=== PATIENT | female | born 1955 | race Caucasian/White ===

== ENCOUNTER 2017-02-14 11:00 | Emergency (ER) | payer OTHER, MEDICARE ==
[2017-02-14 11:10] VITALS: BP 165/97
[2017-02-14] MEDS ORDERED: Sodium Chloride 0.9% 10 ML Syringe FLUSH PRN (11:29)
--- NOTE | 2017-02-14 11:38 | EDM.PDOC ---
ED HPI GENERAL MEDICAL PROBLEM - General Chief Complaint: Respiratory Problem Stated Complaint: CHEST CONGESTION Time Seen by Provider: 02/14/17 11:20 Source of Information: Reports: Patient History Limitations: Reports: No Limitations - History of Present Illness INITIAL COMMENTS - FREE TEXT/NARRATIVE: Patient is a 61-year-old female presents to the ED complaining of nonproductive cough, shortness of breath with exertion, intermittent chest tightness, orthopnea and PND for the past week. Patient states she has had no sinus congestion, postnasal drip, or sore throat along with the above symptoms. States hacking cough has progressively gotten worse over the course of the week. States while in going to bed she has to sleep with 2 pillows otherwise she is short of breath and coughs. Again this is a nonproductive cough. States in the middle of the night she awakes abruptly gasping for air and coughing. Again there is no production of mucus at that time. States she has not noticed increase in weight recently but states she does fluctuate between 150 to 156 lbs. Denies any recent edema to her lower legs. She did have a prior episode as such this past September after having right shoulder surgery. Patient states 3 days after having the surgery she developed increasing shortness of breath with some chest tightness. She had some blood work obtained and was transferred to [place] for further evaluation. Dr. Logan park maintainer at [facility] evaluated the patient and the patient had a stress echocardiogram. Patient states heart was essentially normal with no valvular abnormalities noted. They contributed the cough and chest tightness to increased edema on her lungs. She did receive Lasix while in the hospital and has had resolution since.Currently denies any chest pain, shortness of breath, nausea/vomiting, diaphoresis, fever/chills, recent sick exposure, or any additional complaints. She has no history of DVT/PE, hemoptysis, exogenous estrogen, recent surgery, CA , or prolonged bed rest. Chest Pain Score (Numeric/FACES): 8 - Related Data Allergies Allergy/AdvReac Type Severity Reaction Status Date / Time gluten Allergy Severe Swelling Verified 02/14/17 11:57 zolpidem tartrate Allergy Severe Swelling Verified 02/14/17 11:57 [From Ambien] adhesive Allergy Mild Rash Verified 02/14/17 11:57 acetaminophen [From Endocet] Allergy Unknown Cannot Verified 02/14/17 11:57 Remember indomethacin Allergy Unknown Cannot Verified 02/14/17 11:57 Remember iodine Allergy Unknown Cannot Verified 02/14/17 11:57 Remember oxycodone HCl [From Endocet] Allergy Unknown Cannot Verified 02/14/17 11:57 Remember Penicillins Allergy Unknown Cannot Verified 02/14/17 11:57 Remember red dye Allergy Unknown Swelling Verified 02/14/17 11:57 azithromycin Allergy Diarrhea Verified 02/14/17 11:57 cefdinir Allergy Vomiting Verified 02/14/17 11:57 cetirizine HCl [From Zyrtec] Allergy Rash Verified 02/14/17 11:57 clarithromycin [From Biaxin] Allergy Rash Verified 02/14/17 11:57 clobetasol Allergy Cannot Verified 02/14/17 11:57 Remember clotrimazole Allergy Rash Verified 02/14/17 11:57 doxycycline Allergy Rash Verified 02/14/17 11:57 ezetimibe [From Zetia] Allergy Rash Verified 02/14/17 11:57 famotidine [From Pepcid] Allergy Stomach Verified 02/14/17 11:57 Upset latex Allergy Rash Verified 02/14/17 11:57 levofloxacin Allergy Rash Verified 02/14/17 11:57 licorice Allergy Rash Verified 02/14/17 11:57 loratadine [From Claritin] Allergy Rash Verified 02/14/17 11:57 omeprazole Allergy Rash Verified 02/14/17 11:57 pravastatin Allergy Cannot Verified 02/14/17 11:57 Remember prednisone Allergy Hives Verified 02/14/17 11:57 rosuvastatin [From Crestor] Allergy Rash Verified 02/14/17 11:57 yeast, dried [yeast] Allergy Rash Verified 02/14/17 11:57 yeast Allergy Severe Swelling Uncoded 02/14/17 11:57 adh Allergy Rash Uncoded 02/14/17 11:57 benzidine Allergy Cannot Uncoded 02/14/17 11:57 Remember bromochlorosalicylanilide Allergy Cannot Uncoded 02/14/17 11:57 Remember IV dye Allergy Rash Uncoded 02/14/17 11:57 MSG Allergy Hives Uncoded 02/14/17 11:57 Home Meds: Home Meds Levothyroxine [Synthroid] 100 mcg PO MOTUWETHFRSA 04/05/16 [History] Levothyroxine [Synthroid] 150 mcg PO CHAMPION 04/05/16 [History] Ondansetron [Zofran ODT] 4 mg PO Q4H PRN 10/27/16 [History] traMADol HCl [Tramadol HCl ER] 100 mg PO DAILY PRN 10/27/16 [History] Benzonatate [Tessalon Perles] 100 mg PO TID PRN #21 cap 02/14/17 [Rx] Past Medical History - Past Health History Medical/Surgical History: Denies Medical/Surgical History Cardiovascular History: Reports: Other (See Below) Other Cardiovascular History: tia in the past Respiratory History: Reports: Pneumonia, Recurrent Other Respiratory History: Pt states "I got the pneumonia shot, so now they are hoping that will take care of it." 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 Neurological History: Reports: TIA Endocrine/Metabolic History: Reports: Hypothyroidism Hematologic History: Reports: Anemia Other Hematologic History: Patient states "was anemic as a child." - Infectious Disease History Infectious Disease History: Reports: Chicken Pox - Past Surgical History GI Surgical History: Reports: Other (See Below) Female Surgical History: Reports: Section, Hysterectomy Endocrine Surgical History: Reports: Thyroidectomy Musculoskeletal Surgical History: Reports: Shoulder Surgery, Other (See Below) Social & Family History - Family History Family Medical History: Noncontributory - Tobacco Use Smoking Status *Q: Never Smoker Second Hand Smoke Exposure: No - Caffeine Use Caffeine Use: Reports: Coffee - Alcohol Use Days Per Week of Alcohol Use: 0 - Recreational Drug Use Recreational Drug Use: No ED ROS GENERAL - Review of Systems Review Of Systems: See Below Constitutional: Denies: Fever, Chills, Decreased Appetite HEENT: Reports: No Symptoms Respiratory: Reports: Shortness of Breath, Cough. Denies: Sputum Cardiovascular: Reports: Chest Pain (tightness) GI/Abdominal: Denies: Abdominal Pain, Nausea, Vomiting : Denies: Dysuria Musculoskeletal: Denies: Muscle Pain ED EXAM, GENERAL - Physical Exam Exam: See Below Exam Limited By: No Limitations General Appearance: Alert, WD/WN, No Apparent Distress Eye Exam: Bilateral Eye: PERRL Ears: Normal External Exam, Hearing Grossly Normal Nose: Normal Inspection, Normal Mucosa, No Blood Throat/Mouth: Normal Inspection, Normal Oropharynx, Normal Voice, No Airway Compromise Head: Atraumatic, Normocephalic Neck: Normal Inspection, Supple, Non-Tender, Full Range of Motion. No: Lymphadenopathy (L), Lymphadenopathy (R) Respiratory/Chest: No Respiratory Distress, Lungs Clear, Normal Breath Sounds, No Accessory Muscle Use Cardiovascular: Normal Peripheral Pulses, Regular Rate, Rhythm Peripheral Pulses: 2+: Radial (R) GI/Abdominal: Normal Bowel Sounds, Soft, Non-Tender, No Organomegaly, No Distention Extremities: Non-Tender, No Pedal Edema Neurological: Alert, Oriented, CN II-XII Intact, Normal Cognition, Normal Gait, No Motor/Sensory Deficits Psychiatric: Normal Affect, Normal Mood Skin Exam: Warm, Dry, Intact, Normal Color, No Rash Course - Vital Signs Last Recorded V/S: Last Vital Signs Temp 97.9 F 02/14/17 11:08 Pulse 93 02/14/17 11:08 Resp 20 02/14/17 11:08 BP 165/97 H 02/14/17 11:08 Pulse Ox 97 02/14/17 12:13 - Orders/Labs/Meds Orders: Active Orders 24 hr Category Date Time Status EKG 12 Lead [EKG Documentation Completion] [RC] STAT Care 02/14/17 11:15 Active Peripheral IV Care [RC] . DIRECTED Care 02/14/17 11:30 Active RT Aerosol Therapy [RC] ASDIRECTED Care 02/14/17 11:54 Active Peripheral IV Insertion Adult [OM.PC] Routine Oth 02/14/17 11:29 Ordered Labs: Laboratory Tests 02/14/17 02/14/17 02/14/17 Range/Units 11:45 11:45 11:45 WBC 6.63 (3.98-10.04) K/mm3 RBC 4.82 (3.98-5.22) M/mm3 Hgb 13.6 (11.2-15.7) gm/L Hct 41.4 (34.1-44.9) % MCV 85.9 (79.4-94.8) fl MCH 28.2 (25.6-32.2) pg MCHC 32.9 (32.2-35.5) g/dl RDW Std Deviation 47.2 H (36.4-46.3) fL Plt Count 233 (182-369) K/mm3 MPV 11.3 (9.4-12.3) fl Neut % (Auto) 59.9 (34.0-71.1) % Lymph % (Auto) 32.0 (19.3-51.7) % [place] % (Auto) 6.2 (4.7-12.5) % Eos % (Auto) 1.1 (0.7-5.8) Baso % (Auto) 0.6 (0.1-1.2) % Neut # (Auto) 3.98 (1.56-6.13) K/mm3 Lymph # (Auto) 2.12 (1.18-3.74) K/mm3 [place] # (Auto) 0.41 H (0.24-0.36) K/mm3 Eos # (Auto) 0.07 (0.04-0.36) K/mm3 Baso # (Auto) 0.04 (0.01-0.08) K/mm3 Sodium 143 (136-145) mEq/L Potassium 3.9 (3.5-5.1) mEq/L Chloride 105 (98-107) mEq/L Carbon Dioxide 29 (21-32) mEq/L Anion Gap 12.9 (5-15) BUN 15 (7-18) mg/dL Creatinine 0.8 (0.55-1.02) mg/dL Est Cr Clr Drug Dosing 52.37 mL/min Estimated GFR (MDRD) > 60 (>60) mL/min BUN/Creatinine Ratio 18.8 H (14-18) Glucose 114 (80-115) mg/dL Calcium 9.3 (8.5-10.1) mg/dL Total Bilirubin 0.3 (0.2-1.0) mg/dL AST 23 (15-37) U/L ALT 31 (14-59) U/L Alkaline Phosphatase 65 (46-116) U/L Troponin I < 0.017 (0.00-0.056) ng/mL C-Reactive Protein < 0.2 (<1.0) mg/dL B-Natriuretic Peptide < 15 (0-100) pg/mL Total Protein 8.1 (6.4-8.2) g/dl Albumin 3.9 (3.4-5.0) g/dl Globulin 4.2 gm/dL Albumin/Globulin Ratio 0.9 L (1-2) Meds: Medications Discontinued Medications Generic Name Dose Route Start Last Admin Trade Name Fredavid PRN Reason Stop Dose Admin Albuterol 2.5 mg 02/14/17 11:54 02/14/17 12:12 Proventil Neb Soln NEB 02/14/17 11:55 2.5 mg ONETIME ONE Administration Sodium Chloride 10 ml 02/14/17 11:29 02/14/17 11:53 Saline Flush FLUSH 10 ml ASDIRECTED PRN Administration Keep Vein Open - Re-Assessments/Exams Free Text/Narrative Re-Assessment/Exam: Due to patient's history and symptomology we'll obtain a peripheral IV. Initial labs and studies include: CBC, chem 14, CRP, troponin, chest x-ray two-view, and 12 lead. EKG: sinus rhythm at a rate of 89, normal P axis, MO interval 161, QTC 430, old inferior infarct. No acute ST changes noted. 1145 CXR revealed no cardiomegaly or acute abnormalities. No increased vascular congestion noted. 02/14/17 12:58 Labs reviewed: Essentially all were normal. Patient had minimal relief with albuterol tx. Ruled out cardiac etiology. Symptoms are most likely related to a viral URI. This will run its course over the next few days. Treatment is symptomatic care only. Will discharge patient home instructions. Departure - Departure Time of Disposition: 13:00 Disposition: Home, Self-Care 01 Condition: good Clinical Impression: Viral URI with cough - Discharge Information Prescriptions: Benzonatate [Tessalon Perles] 100 mg PO TID PRN #21 cap PRN Reason: Cough Instructions: Acute Bronchitis, [id number] Referrals: Kai Wilson MD [Primary Care Provider] - Forms: ED Department Discharge Additional Instructions: take the Tessalon Perles as described for cough. Push the fluids. Ensure adequate rest. Take tylenol and ibuprofen in alternating fashion as needed for any discomfort. Can take Mucinex 600 mg twice a day until cough subsides. See her PCP in one week if symptoms have not improved. Return to ED if you experience any new or worsening symptoms. - My Orders Last 24 Hours: My Active Orders 02/14/17 11:15 EKG 12 Lead [EKG Documentation Completion] [RC] STAT 02/14/17 11:29 Peripheral IV Insertion Adult [OM.PC] Routine 02/14/17 11:30 Peripheral IV Care [RC] . DIRECTED 02/14/17 11:54 RT Aerosol Therapy [RC] ASDIRECTED - Assessment/Plan Last 24 Hours: My Active Orders 02/14/17 11:15 EKG 12 Lead [EKG Documentation Completion] [RC] STAT 02/14/17 11:29 Peripheral IV Insertion Adult [OM.PC] Routine 02/14/17 11:30 Peripheral IV Care [RC] . DIRECTED 02/14/17 11:54 RT Aerosol Therapy [RC] ASDIRECTED
[2017-02-14] MEDS ORDERED: Albuterol 0.083% 2.5 MG/3 ML Neb Soln NEB ONE (11:54)
--- NOTE | 2017-02-14 12:23 | CR ---
Chest: Two views of the chest are obtained. Comparison: Previous chest x-ray of 10/27/16. Heart size and mediastinum are normal. Lungs are clear. Previous right shoulder surgery is seen. Scoliosis is noted within the spine. Impression: 1. Incidental findings. Nothing acute is identified on two-view chest x-ray. Diagnostic code #2
== END 2017-02-14 13:25 | disposition home or self-care (01) ==
LOC: JD.ED 11:00
DX: J06.9 Acute upper respiratory infection, unspecified (principal); E03.9 Hypothyroidism, unspecified; Z88.0 Allergy status to penicillin; Z88.8 Allergy status to other drugs, medicaments and biological substances; Z88.1 Allergy status to other antibiotic agents; Z88.5 Allergy status to narcotic agent; Z91.041 Radiographic dye allergy status; Z79.899 Other long term (current) drug therapy; Z90.710 Acquired absence of both cervix and uterus; Z98.890 Other specified postprocedural states; Z86.73 Personal history of transient ischemic attack (TIA), and cerebral infarction without residual deficits
CPT/HCPCS: 36415; 71020; 80053; 83880; 84484; 85025; 86140; 93005; 94664; 99284; J7050; 99283

== ENCOUNTER 2017-07-18 17:09 | Emergency (ER) | payer OTHER, MEDICARE ==
[2017-07-18 17:33] VITALS: BP 160/97
[2017-07-18] MEDS ORDERED: Lidocaine 1% 50 ML MDV INJECT ONE (17:58)
--- NOTE | 2017-07-18 18:03 | EDM.PDOC ---
ED HPI GENERAL MEDICAL PROBLEM - General Chief Complaint: Skin Complaint Stated Complaint: MOLES STILL BLEEDING Time Seen by Provider: 07/18/17 17:51 Source of Information: Reports: Patient History Limitations: Reports: No Limitations - History of Present Illness INITIAL COMMENTS - FREE TEXT/NARRATIVE: 61-year-old female presents for evaluation treatment of persistent bleeding from recent biopsies. Patient was in [place] and had 3 moles biopsied around 8: 30 am today. Sounds as if shave biopsy was performed. She's states that she has been soaking through the gauze underclothes. Located on her back and flanks. The bleeding has not subsided since being biopsied. Takes aspirin twice a week. Has not taken aspirin in the last 4 days. 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) - Related Data Allergies Allergy/AdvReac Type Severity Reaction Status Date / Time gluten Allergy Severe Swelling Verified 07/18/17 17:33 zolpidem tartrate Allergy Severe Swelling Verified 07/18/17 17:33 [From Ambien] adhesive Allergy Mild Rash Verified 07/18/17 17:33 acetaminophen [From Endocet] Allergy Unknown Cannot Verified 07/18/17 17:33 Remember indomethacin Allergy Unknown Cannot Verified 07/18/17 17:33 Remember iodine Allergy Unknown Cannot Verified 07/18/17 17:33 Remember oxycodone HCl [From Endocet] Allergy Unknown Cannot Verified 07/18/17 17:33 Remember Penicillins Allergy Unknown Cannot Verified 07/18/17 17:33 Remember red dye Allergy Unknown Swelling Verified 07/18/17 17:33 azithromycin Allergy Diarrhea Verified 07/18/17 17:33 cefdinir Allergy Vomiting Verified 07/18/17 17:33 cetirizine HCl [From Zyrtec] Allergy Rash Verified 07/18/17 17:33 clarithromycin [From Biaxin] Allergy Rash Verified 07/18/17 17:33 clobetasol Allergy Cannot Verified 07/18/17 17:33 Remember clotrimazole Allergy Rash Verified 07/18/17 17:33 doxycycline Allergy Rash Verified 07/18/17 17:33 ezetimibe [From Zetia] Allergy Rash Verified 07/18/17 17:33 famotidine [From Pepcid] Allergy Stomach Verified 07/18/17 17:33 Upset latex Allergy Rash Verified 07/18/17 17:33 levofloxacin Allergy Rash Verified 07/18/17 17:33 licorice Allergy Rash Verified 07/18/17 17:33 loratadine [From Claritin] Allergy Rash Verified 07/18/17 17:33 omeprazole Allergy Rash Verified 07/18/17 17:33 pravastatin Allergy Cannot Verified 07/18/17 17:33 Remember prednisone Allergy Hives Verified 07/18/17 17:33 rosuvastatin [From Crestor] Allergy Rash Verified 07/18/17 17:33 yeast, dried [yeast] Allergy Rash Verified 07/18/17 17:33 yeast Allergy Severe Swelling Uncoded 07/18/17 17:33 adh Allergy Rash Uncoded 07/18/17 17:33 benzidine Allergy Cannot Uncoded 07/18/17 17:33 Remember bromochlorosalicylanilide Allergy Cannot Uncoded 07/18/17 17:33 Remember IV dye Allergy Rash Uncoded 07/18/17 17:33 MSG Allergy Hives Uncoded 07/18/17 17:33 Home Meds: Home Meds Levothyroxine [Synthroid] 50 mcg PO BID 04/05/16 [History] Benzonatate [Tessalon Perles] 100 mg PO TID PRN #21 cap 02/14/17 [Rx] Aspirin 325 mg PO ASDIRECTED 07/18/17 [History] Cholecalciferol (Vitamin D3) [Vitamin D] 5,000 unit PO DAILY 07/18/17 [History] Levothyroxine 150 mcg PO ASDIRECTED 07/18/17 [History] Multivitamin [One Daily] 1 each PO DAILY 07/18/17 [History] Ubidecarenone [COQ-10] 30 mg PO DAILY 07/18/17 [History] Past Medical History - Past Health History Medical/Surgical History: Denies Medical/Surgical History HEENT History: Reports: Impaired Vision Cardiovascular History: Reports: High Cholesterol, Hypertension, Other (See Below) Other Cardiovascular History: tia in the past Respiratory History: Reports: Pneumonia, Recurrent Other Respiratory History: Pt states "I got the pneumonia shot, so now they are hoping that will take care of it." 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 Neurological History: Reports: TIA Psychiatric History: Reports: Anxiety Endocrine/Metabolic History: Reports: Hypothyroidism Hematologic History: Reports: Anemia Other Hematologic History: Patient states "was anemic as a child." - Infectious Disease History Infectious Disease History: Reports: Chicken Pox - Past Surgical History Female Surgical History: Reports: Section, Hysterectomy Endocrine Surgical History: Reports: Thyroidectomy Musculoskeletal Surgical History: Reports: Shoulder Surgery Dermatological Surgical History: Reports: Skin Biopsy Social & Family History - Family History Family Medical History: Noncontributory - Tobacco Use Smoking Status *Q: Never Smoker Second Hand Smoke Exposure: No - Caffeine Use Caffeine Use: Reports: Coffee - Alcohol Use Days Per Week of Alcohol Use: 0 - Recreational Drug Use Recreational Drug Use: No ED ROS GENERAL - Review of Systems Review Of Systems: ROS reveals no pertinent complaints other than HPI. ED EXAM, SKIN/RASH Exam: See Below Exam Limited By: No Limitations General Appearance: Alert, WD/WN, No Apparent Distress Respiratory/Chest: No Respiratory Distress Neurological: Alert, Oriented, Normal Cognition Psychiatric: Normal Affect, Normal Mood Skin: Warm, Dry, Normal Color, Other (3 recetly biopsied areas one to the right mid back, one to the right flank and one to the left flank each about 1cm in diameter. apparent shave biopsy. Superficial ) Course - Vital Signs Last Recorded V/S: Last Vital Signs Temp 36.4 C 07/18/17 17:20 Pulse 81 07/18/17 17:20 Resp 18 07/18/17 17:20 BP 160/97 H 07/18/17 17:20 Pulse Ox 98 07/18/17 17:20 - Orders/Labs/Meds Meds: Medications Discontinued Medications Generic Name Dose Route Start Last Admin Trade Name Patricia PRN Reason Stop Dose Admin Lidocaine HCl 50 ml 07/18/17 17:58 07/18/17 18:05 Xylocaine 1% INJECT 07/18/17 17:59 50 ml ONETIME ONE Administration - Re-Assessments/Exams Free Text/Narrative Re-Assessment/Exam: 07/18/17 18: 35 The three areas were anesthetized with 1% lidocaine about 1ml total after they were cleansed with chloraprep. The areas were then cauterized with silver nitrate. Patient tolerate the procedure well. No complications. Will recheck on the patient shortly to ensure bleeding has not restarted. 07/18/17 18:44 I have rechecked on the patient. No bleeding from the 3 areas that were cauterized. We will discharge her home. Discharge instructions as documented. 07/18/17 18:47 Departure - Departure Time of Disposition: 18:44 Disposition: Home, Self-Care 01 Condition: Good Clinical Impression: Bleeding from wound - Discharge Information Referrals: PCP,None [Primary Care Provider] - Forms: ED Department Discharge Additional Instructions: Keep the wounds covered. After 24 hours may apply antibacterial ointment to the wounds and wash the wounds. Monitor for signs of infection such as increased erythema, pus or swelling. Present to the clinic or the ER should these develop. Please return to the ER should your symptoms change or worsen. If the wounds start to re bleed, hold pressure to the areas.
== END 2017-07-18 19:00 | disposition home or self-care (01) ==
LOC: JD.ED 17:09
DX: L76.22 Postprocedural hemorrhage of skin and subcutaneous tissue following other procedure (principal); Z88.0 Allergy status to penicillin; Z88.5 Allergy status to narcotic agent; Z88.8 Allergy status to other drugs, medicaments and biological substances; Z91.040 Latex allergy status; Z88.1 Allergy status to other antibiotic agents; Z79.899 Other long term (current) drug therapy
CPT/HCPCS: 12002; 99282-25; 99283

== ENCOUNTER 2017-10-01 01:08 | Emergency (ER) | payer BC, MEDICARE ==
[2017-10-01 01:29] VITALS: BP 161/73
[2017-10-01] MEDS ORDERED: Ondansetron 4 MG/2 ML SDV IVPUSH ONE (02:22)
[2017-10-01] MEDS ORDERED: HYDROmorphone 0.5 MG/0.5 ML Syringe IVPUSH ONE (02:24)
--- NOTE | 2017-10-01 02:27 | EDM.PDOC ---
ED HPI GENERAL MEDICAL PROBLEM - General Chief Complaint: Abdominal Pain Stated Complaint: SHARP PAINS UNDER RIBS RIGHT SIDE Time Seen by Provider: 10/01/17 01:19 Source of Information: Reports: Patient, Family () History Limitations: Reports: No Limitations - History of Present Illness INITIAL COMMENTS - FREE TEXT/NARRATIVE: The patient states that she developed sharp right upper quadrant abdominal pain yesterday, 09/30/2017. It has been waxing and waning. Is made worse with deep breaths or eating fatty foods. It does not radiate. No prior similar symptoms. No recent fever. The patient has had nausea, but no emesis, constipation, diarrhea, or urinary symptoms. The patient states that she was on pitavastatin for about 3 weeks in early August. She then developed low back pain, dull in character, along with bilateral ankle aches, about 10 days ago. Her low back pain is still present, although it has improved, while her bilateral ankle aches lasted for about 5 or 6 days. The patient was seen at the [place] walk in clinic this past Friday, 2016 for her low back ache. A CMP, CPK, and urinalysis were performed. They were all unremarkable. The patient does not know what diagnosis she was given, but no prescriptions were written, and the walk-in clinic recommended that the patient follow-up with her PCP. The patient's last oral solid food was around 18:30 last night. Her last oral fluid intake was around 01:00 this morning. The patient does not have a PCP. Right Upper Abdomen Pain Score (Numeric/FACES): 6 - Related Data Allergies Allergy/AdvReac Type Severity Reaction Status Date / Time gluten Allergy Severe Swelling Verified 10/01/17 02:43 zolpidem tartrate Allergy Severe Swelling Verified 10/01/17 02:43 [From Ambien] adhesive Allergy Mild Rash Verified 10/01/17 02:43 acetaminophen [From Endocet] Allergy Unknown Cannot Verified 10/01/17 02:43 Remember indomethacin Allergy Unknown Cannot Verified 10/01/17 02:43 Remember iodine Allergy Unknown Cannot Verified 10/01/17 02:43 Remember oxycodone HCl [From Endocet] Allergy Unknown Cannot Verified 10/01/17 02:43 Remember red dye Allergy Unknown Swelling Verified 10/01/17 02:43 cefdinir Allergy Vomiting Verified 10/01/17 02:43 cetirizine HCl [From Zyrtec] Allergy Rash Verified 10/01/17 02:43 clarithromycin [From Biaxin] Allergy Rash Verified 10/01/17 02:44 clobetasol Allergy Cannot Verified 10/01/17 02:44 Remember clotrimazole Allergy Rash Verified 10/01/17 02:44 doxycycline Allergy Rash Verified 10/01/17 02:44 ezetimibe [From Zetia] Allergy Rash Verified 10/01/17 02:44 famotidine [From Pepcid] Allergy Stomach Verified 10/01/17 02:44 Upset latex Allergy Rash Verified 10/01/17 02:44 levofloxacin Allergy Rash Verified 10/01/17 02:44 licorice Allergy Rash Verified 10/01/17 02:44 loratadine [From Claritin] Allergy Rash Verified 10/01/17 02:44 omeprazole Allergy Rash Verified 10/01/17 02:44 pravastatin Allergy Cannot Verified 10/01/17 02:44 Remember prednisone Allergy Hives Verified 10/01/17 02:44 rosuvastatin [From Crestor] Allergy Rash Verified 10/01/17 02:44 yeast, dried [yeast] Allergy Rash Verified 10/01/17 02:44 adh Allergy Rash Uncoded 10/01/17 02:44 benzidine Allergy Cannot Uncoded 10/01/17 02:44 Remember bromochlorosalicylanilide Allergy Cannot Uncoded 10/01/17 02:44 Remember IV dye Allergy Rash Uncoded 10/01/17 02:44 MSG Allergy Hives Uncoded 10/01/17 02:44 Home Meds: Home Meds Levothyroxine [Synthroid] 150 mcg PO CHAMPION 04/05/16 [History] Cholecalciferol (Vitamin D3) [Vitamin D] 5,000 unit PO DAILY 07/18/17 [History] Levothyroxine 100 mcg PO MOTUWETHFRSA 07/18/17 [History] Multivitamin [One Daily] 1 each PO DAILY 07/18/17 [History] Ubidecarenone [COQ-10] 30 mg PO DAILY 07/18/17 [History] Ascorbic Acid [Vitamin C] 1,000 mg PO DAILY 10/01/17 [History] Ca/D3/Mag#11/Zinc/Credit Risk Specialist/Demond/Bor [Caltrate 600+D Plus Tablet] 2 tab PO DAILY 10/01 [History] Past Medical History HEENT History: Reports: Impaired Vision Other HEENT History: Wears glasses Cardiovascular History: Reports: High Cholesterol Gastrointestinal History: Reports: Colon Polyp 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 Neurological History: Reports: TIA (possible) Psychiatric History: Reports: Anxiety Endocrine/Metabolic History: Reports: Hypothyroidism Hematologic History: Reports: Anemia (as a child) - Infectious Disease History Infectious Disease History: Reports: Chicken Pox - Past Surgical History GI Surgical History: Reports: Colonoscopy, EGD, Hernia Repair/Other Female Surgical History: Reports: Section (x 1), Hysterectomy, Salpingo-Oophorectomy Endocrine Surgical History: Reports: Thyroidectomy Musculoskeletal Surgical History: Reports: Shoulder Surgery Dermatological Surgical History: Reports: Skin Biopsy Social & Family History - Family History Family Medical History: Noncontributory - Tobacco Use Smoking Status *Q: Never Smoker Second Hand Smoke Exposure: No - Caffeine Use Caffeine Use: Reports: Coffee - Alcohol Use Days Per Week of Alcohol Use: 0 - Recreational Drug Use Recreational Drug Use: No - Living Situation & Occupation Living situation: Reports: , with Spouse ED ROS GENERAL - Review of Systems Review Of Systems: ROS reveals no pertinent complaints other than HPI. ED EXAM, GI/ABD - Physical Exam Exam: See Below Exam Limited By: No Limitations General Appearance: Alert, WD/WN, No Apparent Distress Eyes: Bilateral: Normal Appearance, EOMI Ears: Normal External Exam, Hearing Grossly Normal Nose: Normal Inspection, No Blood Throat/Mouth: Normal Inspection, Normal Lips, Normal Voice, No Airway Compromise Head: Atraumatic, Normocephalic Neck: Normal Inspection, Full Range of Motion Respiratory/Chest: No Respiratory Distress, Lungs Clear, Normal Breath Sounds, No Accessory Muscle Use Cardiovascular: Normal Peripheral Pulses, Regular Rate, Rhythm, No Gallop, No JVD, No Murmur, No Rub GI/Abdominal Exam: Normal Bowel Sounds, Soft, No Organomegaly, No Distention, No Abnormal Bruit, No Mass, Tender (Primarily in the epigastric region, but also in the right upper quadrant. Palpation to the remainder of the abdomen induces pain in the right upper quadrant) (Female) Exam: Deferred Rectal (Female) Exam: Deferred Back Exam: Normal Inspection, Full Range of Motion. No: CVA Tenderness (L), CVA Tenderness (R) Extremities: Normal Inspection, Normal Range of Motion, No Pedal Edema, Normal Capillary Refill Neurological: Alert, Oriented, Normal Cognition, No Motor/Sensory Deficits Psychiatric: Normal Affect Skin Exam: Warm, Dry, Intact, Normal Color, No Rash Course - Vital Signs Last Recorded V/S: Last Vital Signs Temp 36.7 C 10/01/17 01:26 Pulse 71 10/01/17 01:26 Resp 16 10/01/17 01:26 BP 161/73 H 10/01/17 01:26 Pulse Ox 97 10/01/17 01:26 - Orders/Labs/Meds Orders: Active Orders 24 hr Category Date Time Status Abdomen Pelvis wo Cont [CT] Stat Exams 10/01/17 02:23 Taken Sodium Chloride 0.9% [Normal Saline] 1,000 ml Med 10/01/17 02:30 Active IV ASDIRECTED Medication Orders Sodium Chloride (Normal Saline) 1,000 mls @ 150 mls/hr IV ASDIRECTED NATHAN Last Admin: 10/01/17 02:36 Dose: 150 mls/hr Labs: Laboratory Tests 10/01/17 10/01/17 10/01/17 Range/Units 02:29 02:29 02:58 WBC 7.19 (3.98-10.04) K/mm3 RBC 4.58 (3.98-5.22) M/mm3 Hgb 12.9 (11.2-15.7) gm/L Hct 39.4 (34.1-44.9) % MCV 86.0 (79.4-94.8) fl MCH 28.2 (25.6-32.2) pg MCHC 32.7 (32.2-35.5) g/dl RDW Std Deviation 46.5 H (36.4-46.3) fL Plt Count 220 (182-369) K/mm3 MPV 11.4 (9.4-12.3) fl Neutrophils % (Manual) 53 (40-60) % Band Neutrophils % 0 (0-10) % Lymphocytes % (Manual) 41 H (20-40) % Atypical Lymphs % 0 % Monocytes % (Manual) 2 (2-10) % Eosinophils % (Manual) 3 (0.7-5.8) % Basophils % (Manual) 1 (0.1-1.2) Platelet Estimate Adequate RBC Morph Comment Normal Sodium 142 (136-145) mEq/L Potassium 3.9 (3.5-5.1) mEq/L Chloride 105 (98-107) mEq/L Carbon Dioxide 28 (21-32) mEq/L Anion Gap 12.9 (5-15) BUN 15 (7-18) mg/dL Creatinine 0.7 (0.55-1.02) mg/dL Est Cr Clr Drug Dosing 59.85 mL/min Estimated GFR (MDRD) > 60 (>60) mL/min BUN/Creatinine Ratio 21.4 H (14-18) Glucose 114 (80-115) mg/dL Calcium 9.2 (8.5-10.1) mg/dL Total Bilirubin 0.1 L (0.2-1.0) mg/dL AST 15 (15-37) U/L ALT 26 (14-59) U/L Alkaline Phosphatase 61 (46-116) U/L Total Protein 7.8 (6.4-8.2) g/dl Albumin 3.8 (3.4-5.0) g/dl Globulin 4.0 gm/dL Albumin/Globulin Ratio 1.0 (1-2) Lipase 180 (73-393) U/L Urine Color Yellow (Yellow) Urine Appearance Clear (Clear) Urine pH 6.0 (5.0-8.0) Ur Specific [place] 1.015 (1.005-1.030) Urine Protein Negative (Negative) Urine Glucose (UA) Negative (Negative) Urine Ketones Negative (Negative) Urine Occult Blood Negative (Negative) Urine Nitrite Negative (Negative) Urine Bilirubin Negative (Negative) Urine Urobilinogen 0.2 (0.2-1.0) Ur Leukocyte Esterase Trace H (Negative) Urine RBC 0-5 (0-5) /hpf Urine WBC 0-5 (0-5) /hpf Ur Epithelial Cells 0-5 (0-5) /hpf Urine Bacteria Few (FEW) /hpf Urine Mucus Few (FEW) /hpf Meds: Medications Generic Name Dose Route Start Last Admin Trade Name Freq PRN Reason Stop Dose Admin Sodium Chloride 1,000 mls @ 150 mls/hr 10/01/17 02:30 10/01/17 02:36 Normal Saline IV 150 mls/hr ASDIRECTED NATHAN Administration Discontinued Medications Generic Name Dose Route Start Last Admin Trade Name Freq PRN Reason Stop Dose Admin Hydromorphone HCl 0.5 mg 10/01/17 02:24 10/01/17 02:41 Dilaudid IVPUSH 10/01/17 02:25 0.5 mg ONETIME ONE Administration Ondansetron HCl 4 mg 10/01/17 02:22 10/01/17 02:38 Zofran IVPUSH 10/01/17 02:23 4 mg ONETIME ONE Administration - Re-Assessments/Exams Free Text/Narrative Re-Assessment/Exam: 10/01/17 05:08 CT of the abdomen and pelvis with oral, but no IV contrast, is read by [facility] as: 1. Gastritic distention of uncertain clinical significance. An element of gastroparesis cannot be excluded. 2. No nephrolithiasis. No obstructing renal or ureteral stone. No hydronephrosis. 3. Appendix is not definitely identified. No associated CT findings of acute appendicitis. 10/01/17 05:32 Test results discussed with the patient and her . Tonight's workup is unremarkable, and does not explain the cause of the patient's abdominal pain. I will discharge the patient home with a referral to Dr. Singh. I offered to prescribe a narcotic pain reliever and an antiemetic, however, the patient declined both. Departure - Departure Time of Disposition: 05:34 Disposition: Home, Self-Care 01 Condition: Good Clinical Impression: Abdominal pain of unknown etiology - Discharge Information Referrals: PCP,None [Primary Care Provider] - Darren Singh MD [Physician] - Altagracia Vicente MD [Physician] - Forms: ED Department Discharge Additional Instructions: You were seen in the emergency room for upper right abdominal pain and nausea. Workup in the ER included blood work, a urinalysis, and a CT scan of your abdomen and pelvis. Your entire workup was unremarkable, and does not explain the cause of your pain. Further workup is needed. You were offered prescriptions for pain medicine and anti-nausea medicine, but declined both. We recommend that you avoid fatty/greasy/oily foods. Follow-up with the surgeon Dr. Darren Singh, at the next available appointment. If any other problems, please do not hesitate to return to the ER. - My Orders Last 24 Hours: My Active Orders 10/01/17 02:23 Abdomen Pelvis wo Cont [CT] Stat 10/01/17 02:30 Sodium Chloride 0.9% [Normal Saline] 1,000 ml IV ASDIRECTED - Assessment/Plan Last 24 Hours: My Active Orders 10/01/17 02:23 Abdomen Pelvis wo Cont [CT] Stat 10/01/17 02:30 Sodium Chloride 0.9% [Normal Saline] 1,000 ml IV ASDIRECTED
[2017-10-01] MEDS ORDERED: Sodium Chloride 0.9% 1,000 ML IV SCH (02:30)
--- NOTE | 2017-10-01 09:14 | CT ---
CT abdomen and pelvis Technique: Multiple axial sections were obtained from above the liver inferiorly through the pubic symphysis. Intravenous contrast was not utilized. Oral contrast has been given. Comparison: Prior abdominal and pelvic CT exam dated 07/23/12. Findings: Visualized lung bases show nothing acute. Small hiatal hernia is noted. Liver shows no focal parenchymal abnormality. Spleen appears within normal limits. Adrenal glands show no nodule. Pancreas is within normal limits. Stomach contains contrast. Kidneys show no abnormal calcifications. No ureteral dilatation or ureteral stone is seen. Atherosclerotic calcification is noted within the aortoiliac vessels without aneurysm. No retroperitoneal adenopathy or mesenteric abnormalities are seen. No pelvic mass or adenopathy is seen. No inflammatory change or free fluid is identified. Appendix is not visualized with certainty. Bone window settings were reviewed which appear within normal limits for the patient's age. Impression: 1. Stomach is filled with contrast which is felt to be incidental. 2. Other incidental findings. Nothing acute is identified on CT study of the abdomen and pelvis. Diagnostic code #2 I agree with preliminary report issued by [facility] ([facility] report finalized on 10/01/17, 6:05 AM Central Time)
== END 2017-10-01 05:55 | disposition home or self-care (01) ==
LOC: JD.ED 01:08
DX: R10.11 Right upper quadrant pain (principal); E78.00 Pure hypercholesterolemia, unspecified; Z79.899 Other long term (current) drug therapy; Z88.8 Allergy status to other drugs, medicaments and biological substances; Z91.041 Radiographic dye allergy status; Z88.1 Allergy status to other antibiotic agents; Z91.09 Other allergy status, other than to drugs and biological substances
CPT/HCPCS: 36415; 74176; 80053; 81001; 83690; 85025; 96361; 96374; 96375; 99284; J1170; J2405; J7040; P9612; 99283

== ENCOUNTER 2017-10-26 19:12 | Emergency (ER) | payer BC, MEDICARE ==
[2017-10-26 19:22] VITALS: BP 167/77
[2017-10-26] MEDS ORDERED: Sodium Chloride 0.9% 10 ML Syringe FLUSH PRN (19:44)
--- NOTE | 2017-10-26 20:32 | EDM.PDOC ---
ED HPI GENERAL MEDICAL PROBLEM - General Chief Complaint: Respiratory Problem Stated Complaint: DIFFICULTY BREATHING Time Seen by Provider: 10/26/17 19:23 Source of Information: Reports: Patient, RN Notes Reviewed - History of Present Illness INITIAL COMMENTS - FREE TEXT/NARRATIVE: 61 year old female with increasing dyspnea the past 3 to 4 days, chest "feels heavy". Very occasional cough. No congestion, sore throat, fever or chills. No abd pain, nausea or vomting. Hx of "CHF, pulmonary edema" about 1 yr ago. States her weight has been "creeping up" and now about 5 lbs above base line. - Related Data Allergies Allergy/AdvReac Type Severity Reaction Status Date / Time gluten Allergy Severe Swelling Verified 10/01/17 02:43 zolpidem tartrate Allergy Severe Swelling Verified 10/01/17 02:43 [From Ambien] adhesive Allergy Mild Rash Verified 10/01/17 02:43 acetaminophen [From Endocet] Allergy Unknown Cannot Verified 10/01/17 02:43 Remember indomethacin Allergy Unknown Cannot Verified 10/01/17 02:43 Remember iodine Allergy Unknown Cannot Verified 10/01/17 02:43 Remember oxycodone HCl [From Endocet] Allergy Unknown Cannot Verified 10/01/17 02:43 Remember red dye Allergy Unknown Swelling Verified 10/01/17 02:43 cefdinir Allergy Vomiting Verified 10/01/17 02:43 cetirizine HCl [From Zyrtec] Allergy Rash Verified 10/01/17 02:43 clarithromycin [From Biaxin] Allergy Rash Verified 10/01/17 02:44 clobetasol Allergy Cannot Verified 10/01/17 02:44 Remember clotrimazole Allergy Rash Verified 10/01/17 02:44 doxycycline Allergy Rash Verified 10/01/17 02:44 ezetimibe [From Zetia] Allergy Rash Verified 10/01/17 02:44 famotidine [From Pepcid] Allergy Stomach Verified 10/01/17 02:44 Upset latex Allergy Rash Verified 10/01/17 02:44 levofloxacin Allergy Rash Verified 10/01/17 02:44 licorice Allergy Rash Verified 10/01/17 02:44 loratadine [From Claritin] Allergy Rash Verified 10/01/17 02:44 omeprazole Allergy Rash Verified 10/01/17 02:44 pravastatin Allergy Cannot Verified 10/01/17 02:44 Remember prednisone Allergy Hives Verified 10/01/17 02:44 rosuvastatin [From Crestor] Allergy Rash Verified 10/01/17 02:44 benzidine Allergy Cannot Uncoded 10/01/17 02:44 Remember bromochlorosalicylanilide Allergy Cannot Uncoded 10/01/17 02:44 Remember IV dye Allergy Rash Uncoded 10/01/17 02:44 MSG Allergy Hives Uncoded 10/01/17 02:44 Home Meds: Home Meds Levothyroxine [Synthroid] 150 mcg PO CHAMPION 04/05/16 [History] Cholecalciferol (Vitamin D3) [Vitamin D] 5,000 unit PO DAILY 07/18/17 [History] Levothyroxine 100 mcg PO MOTUWETHFRSA 07/18/17 [History] Multivitamin [One Daily] 1 each PO DAILY 07/18/17 [History] Ubidecarenone [COQ-10] 30 mg PO DAILY 07/18/17 [History] Ascorbic Acid [Vitamin C] 1,000 mg PO DAILY 10/01/17 [History] Ca/D3/Mag#11/Zinc/Table Assembler/Demond/Bor [Caltrate 600+D Plus Tablet] 2 tab PO DAILY 10/01 [History] Furosemide 20 mg PO DAILY #10 tablet 10/26/17 [Rx] Past Medical History - Past Health History Medical/Surgical History: Denies Medical/Surgical History HEENT History: Reports: Impaired Vision Other HEENT History: Wears glasses Cardiovascular History: Reports: High Cholesterol Other Cardiovascular History: tia in the past Respiratory History: Reports: Pneumonia, Recurrent Other Respiratory History: Pt states "I got the pneumonia shot, so now they are hoping that will take care of it." Gastrointestinal History: Reports: Colon Polyp 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 Neurological History: Reports: TIA Psychiatric History: Reports: Anxiety Endocrine/Metabolic History: Reports: Hypothyroidism Hematologic History: Reports: Anemia Other Hematologic History: Patient states "was anemic as a child." - Infectious Disease History Infectious Disease History: Reports: Chicken Pox - Past Surgical History GI Surgical History: Reports: Colonoscopy, EGD, Hernia Repair/Other Female Surgical History: Reports: Section, Hysterectomy, Salpingo- Oophorectomy Endocrine Surgical History: Reports: Thyroidectomy Musculoskeletal Surgical History: Reports: Shoulder Surgery Dermatological Surgical History: Reports: Skin Biopsy Social & Family History - Family History Family Medical History: Noncontributory - Tobacco Use Smoking Status *Q: Never Smoker Second Hand Smoke Exposure: No - Caffeine Use Caffeine Use: Reports: Coffee - Alcohol Use Days Per Week of Alcohol Use: 0 - Recreational Drug Use Recreational Drug Use: No - Living Situation & Occupation Living situation: Reports: , with Spouse ED ROS GENERAL - Review of Systems Review Of Systems: See Below Constitutional: Denies: Fever, Chills, Diaphoresis HEENT: Denies: Rhinitis, Sinus Problem, Throat Pain Respiratory: Reports: Shortness of Breath. Denies: Wheezing, Pleuritic Chest Pain Cardiovascular: Reports: Chest Pain (chest feels heavy). Denies: Edema GI/Abdominal: Denies: Abdominal Pain, Nausea, Vomiting Musculoskeletal: Denies: Neck Pain, Shoulder Pain, Arm Pain, Back Pain, Leg Pain Skin: Reports: No Symptoms Neurological: Reports: Dizziness (mild) ED EXAM, GENERAL - Physical Exam Exam: See Below General Appearance: Alert, No Apparent Distress Throat/Mouth: Normal Inspection, Normal Oropharynx Neck: Supple, Full Range of Motion, Other (no JVD). No: Lymphadenopathy (L), Lymphadenopathy (R) Respiratory/Chest: Respiratory Distress (mild tachypnea) Cardiovascular: Regular Rate, Rhythm GI/Abdominal: Soft, Non-Tender Extremities: Normal Range of Motion. No: Pedal Edema, Leg Pain Neurological: Alert, Oriented, No Motor/Sensory Deficits Skin Exam: Warm, Dry, Normal Color EKG INTERPRETATION EKG Date: 10/26/17 Rhythm: NSR [place]: Normal P-Wave: Present QRS: Other (q waves lead III) ST-T: Normal Course - Vital Signs Last Recorded V/S: Last Vital Signs Temp 98.0 F 10/26/17 19:17 Pulse 78 10/26/17 19:17 Resp 22 H 10/26/17 19:17 BP 167/77 H 10/26/17 19:17 Pulse Ox 97 10/26/17 19:17 - Orders/Labs/Meds Orders: Active Orders 24 hr Category Date Time Status EKG 12 Lead [EKG Documentation Completion] [RC] STAT Care 10/26/17 19:45 Active Peripheral IV Care [RC] . DIRECTED Care 10/26/17 19:45 Active Chest 1V Frontal [CR] Stat Exams 10/26/17 19:45 Taken Sodium Chloride 0.9% [Saline Flush] Med 10/26/17 19:44 Active 10 ml FLUSH ASDIRECTED PRN Peripheral IV Insertion Adult [OM.PC] Stat Oth 10/26/17 19:45 Ordered Medication Orders Sodium Chloride (Saline Flush) 10 ml FLUSH ASDIRECTED PRN PRN Reason: Keep Vein Open Last Admin: 10/26/17 20:42 Dose: 10 ml Labs: Laboratory Tests 10/26/17 10/26/17 Range/Units 20:07 20:07 WBC 7.35 (3.98-10.04) K/mm3 RBC 4.52 (3.98-5.22) M/mm3 Hgb 12.8 (11.2-15.7) gm/L Hct 38.7 (34.1-44.9) % MCV 85.6 (79.4-94.8) fl MCH 28.3 (25.6-32.2) pg MCHC 33.1 (32.2-35.5) g/dl RDW Std Deviation 46.5 H (36.4-46.3) fL Plt Count 204 (182-369) K/mm3 MPV 11.3 (9.4-12.3) fl Neut % (Auto) 54.9 (34.0-71.1) % Lymph % (Auto) 34.7 (19.3-51.7) % [place] % (Auto) 8.4 (4.7-12.5) % Eos % (Auto) 1.4 (0.7-5.8) Baso % (Auto) 0.3 (0.1-1.2) % Neut # (Auto) 4.04 (1.56-6.13) K/mm3 Lymph # (Auto) 2.55 (1.18-3.74) K/mm3 [place] # (Auto) 0.62 H (0.24-0.36) K/mm3 Eos # (Auto) 0.10 (0.04-0.36) K/mm3 Baso # (Auto) 0.02 (0.01-0.08) K/mm3 Sodium 141 (136-145) mEq/L Potassium 3.6 (3.5-5.1) mEq/L Chloride 106 (98-107) mEq/L Carbon Dioxide 25 (21-32) mEq/L Anion Gap 13.6 (5-15) BUN 16 (7-18) mg/dL Creatinine 0.7 (0.55-1.02) mg/dL Est Cr Clr Drug Dosing 59.85 mL/min Estimated GFR (MDRD) > 60 (>60) mL/min BUN/Creatinine Ratio 22.9 H (14-18) Glucose 117 H (80-115) mg/dL Calcium 9.0 (8.5-10.1) mg/dL Total Bilirubin 0.1 L (0.2-1.0) mg/dL AST 10 L (15-37) U/L ALT 27 (14-59) U/L Alkaline Phosphatase 65 (46-116) U/L Troponin I < 0.017 (0.00-0.056) ng/mL NT-Pro-B Natriuret Pep 21 (0-125) pg/mL Total Protein 7.7 (6.4-8.2) g/dl Albumin 3.9 (3.4-5.0) g/dl Globulin 3.8 gm/dL Albumin/Globulin Ratio 1.0 (1-2) Meds: Medications Generic Name Dose Route Start Last Admin Trade Name Freq PRN Reason Stop Dose Admin Sodium Chloride 10 ml 10/26/17 19:44 10/26/17 20:42 Saline Flush FLUSH 10 ml ASDIRECTED PRN Administration Keep Vein Open Discontinued Medications Generic Name Dose Route Start Last Admin Trade Name Freq PRN Reason Stop Dose Admin Furosemide 20 mg 10/26/17 20:36 10/26/17 20:41 Lasix IVPUSH 10/26/17 20:37 20 mg NOW ONE Administration - Re-Assessments/Exams Free Text/Narrative Re-Assessment/Exam: 10/26/17 20:46 CXR looks fine, no pulmonary edema or effusion, I do not see what looks like any significant pulmonary congestion and also no cardiomegally. Because of her sx and 5 lb weight gain I am going to give 20 mg lasix at this time. Awaiting labs. Departure - Departure Time of Disposition: 20:56 Disposition: Home, Self-Care 01 Condition: Fair Clinical Impression: Fluid retention - Discharge Information Prescriptions: Furosemide 20 mg PO DAILY #10 tablet Referrals: Kirill Verma MD [Primary Care Provider] - Forms: ED Department Discharge Additional Instructions: avoid salty food as best you can. Furosemide 20 mg q AM for about 5 to 7 days until you loose 3 to 4 lbs of fluid weight, get closer to your baseline. Follow up with Dr Vicente at our [facility] clinic recomended in about 5 to 7 days, call for appt. Return to ED as needed if symptoms worsening in any way. - My Orders Last 24 Hours: My Active Orders 10/26/17 19:44 Sodium Chloride 0.9% [Saline Flush] 10 ml FLUSH ASDIRECTED PRN 10/26/17 19:45 EKG 12 Lead [EKG Documentation Completion] [RC] STAT Peripheral IV Care [RC] . DIRECTED Chest 1V Frontal [CR] Stat Peripheral IV Insertion Adult [OM.PC] Stat - Assessment/Plan Last 24 Hours: My Active Orders 10/26/17 19:44 Sodium Chloride 0.9% [Saline Flush] 10 ml FLUSH ASDIRECTED PRN 10/26/17 19:45 EKG 12 Lead [EKG Documentation Completion] [RC] STAT Peripheral IV Care [RC] . DIRECTED Chest 1V Frontal [CR] Stat Peripheral IV Insertion Adult [OM.PC] Stat
[2017-10-26] MEDS ORDERED: Furosemide 40 MG/4 ML VIAL IVPUSH ONE (20:36)
--- NOTE | 2017-10-27 07:54 | CR ---
Chest: Portable view of the chest was obtained. Comparison: Prior chest x-ray of 02/14/17. Heart size is within normal limits. Tortuous thoracic aorta is seen. Lungs are clear. Bony structures show previous right shoulder surgery. Bony structures otherwise unremarkable for the patient's age. Impression: 1. Incidental findings. Nothing acute is identified. Diagnostic code #2
== END 2017-10-26 21:07 | disposition home or self-care (01) ==
LOC: JD.ED 19:12
DX: R60.9 Edema, unspecified (principal); I50.9 Heart failure, unspecified; E78.00 Pure hypercholesterolemia, unspecified; E03.9 Hypothyroidism, unspecified; Z79.899 Other long term (current) drug therapy; Z88.1 Allergy status to other antibiotic agents; Z88.8 Allergy status to other drugs, medicaments and biological substances; Z91.040 Latex allergy status; Z91.048 Other nonmedicinal substance allergy status; Z91.041 Radiographic dye allergy status
CPT/HCPCS: 36415; 71045; 80053; 83880; 84484; 85025; 93005; 96374; 99285; J1940; J7050; 93010; 99284

== ENCOUNTER 2018-07-05 14:13 | Emergency (ER) | payer BC, MEDICARE ==
[2018-07-05 14:24] VITALS: BP 156/84
--- NOTE | 2018-07-05 15:20 | EDM.PDOC ---
ED HPI GENERAL MEDICAL PROBLEM - General Chief Complaint: Upper Extremity Injury/Pain Stated Complaint: SHOULDER,LEG AND BACK PAIN Time Seen by Provider: 07/05/18 14:22 Source of Information: Reports: Patient, Family (), RN Notes Reviewed History Limitations: Reports: No Limitations - History of Present Illness INITIAL COMMENTS - FREE TEXT/NARRATIVE: The patient reports posterior neck pain that radiates down her left upper shoulder and down the upper portion of her left arm, on off for the past 1-1/2 months. She also reports intermittent back pain, a pinching sensation felt in her upper middle back (localized to her left parascapular area on examination). The sensation will last for about 2 minutes, and recur every 1 or 2 hours. This has also been coming and going for the past month and a half. Lastly, the patient reports posterior left leg pain that has been coming and going for the past 1-1/2 months. When asked, the patient states that she has chronic mild tingling of her left upper extremity. All of her symptoms became worse over the last 2 days, but the patient notes that she tripped and fell, landing on her left shoulder, 2 days ago. The patient has not noticed any change in her symptoms with head or neck movement. She states that she has taken Tylenol and ibuprofen, without relief. The patient does not have a PCP, but plans to follow-up with Dr. Kirill Wadsworth, in [place]. Shoulder Pain Score (Numeric/FACES): 8 - Related Data Allergies Allergy/AdvReac Type Severity Reaction Status Date / Time gluten Allergy Severe Swelling Verified 10/01/17 02:43 zolpidem tartrate Allergy Severe Swelling Verified 10/01/17 02:43 [From Ambien] adhesive Allergy Mild Rash Verified 10/01/17 02:43 acetaminophen [From Endocet] Allergy Unknown Cannot Verified 10/01/17 02:43 Remember indomethacin Allergy Unknown Cannot Verified 10/01/17 02:43 Remember iodine Allergy Unknown Cannot Verified 10/01/17 02:43 Remember oxycodone HCl [From Endocet] Allergy Unknown Cannot Verified 10/01/17 02:43 Remember red dye Allergy Unknown Swelling Verified 10/01/17 02:43 cetirizine HCl [From Zyrtec] Allergy Rash Verified 10/01/17 02:43 clarithromycin [From Biaxin] Allergy Rash Verified 10/01/17 02:44 clobetasol Allergy Cannot Verified 10/01/17 02:44 Remember clotrimazole Allergy Rash Verified 10/01/17 02:44 doxycycline Allergy Rash Verified 10/01/17 02:44 ezetimibe [From Zetia] Allergy Rash Verified 10/01/17 02:44 Iodinated Contrast- Oral and Allergy Rash Verified 10/28/17 10:02 IV Dye latex Allergy Rash Verified 10/01/17 02:44 levofloxacin Allergy Rash Verified 10/01/17 02:44 licorice Allergy Rash Verified 10/01/17 02:44 loratadine [From Claritin] Allergy Rash Verified 10/01/17 02:44 monosodium glutamate Allergy Hives Verified 10/28/17 10:05 omeprazole Allergy Rash Verified 10/01/17 02:44 pravastatin Allergy Cannot Verified 10/01/17 02:44 Remember prednisone Allergy Hives Verified 10/01/17 02:44 rosuvastatin [From Crestor] Allergy Rash Verified 10/01/17 02:44 cefdinir AdvReac Vomiting Verified 10/28/17 08:08 famotidine [From Pepcid] AdvReac Stomach Verified 10/28/17 08:09 Upset benzidine Allergy Cannot Uncoded 10/01/17 02:44 Remember bromochlorosalicylanilide Allergy Cannot Uncoded 10/01/17 02:44 Remember Home Meds: Home Meds Levothyroxine [Synthroid] 150 mcg PO CHAMPION 04/05/16 [History] Cholecalciferol (Vitamin D3) [Vitamin D] 5,000 unit PO DAILY 07/18/17 [History] Levothyroxine 100 mcg PO MOTUWETHFRSA 07/18/17 [History] Multivitamin [One Daily] 1 each PO DAILY 07/18/17 [History] Ubidecarenone [COQ-10] 30 mg PO DAILY 07/18/17 [History] Ascorbic Acid [Vitamin C] 1,000 mg PO DAILY 10/01/17 [History] Past Medical History HEENT History: Reports: Impaired Vision Other HEENT History: Wears glasses Cardiovascular History: Reports: High Cholesterol Gastrointestinal History: Reports: Colon Polyp 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: , Spontaneous (x 1) : 7 Para: 6 Neurological History: Reports: TIA (possible) Psychiatric History: Reports: Anxiety Endocrine/Metabolic History: Reports: Hypothyroidism Hematologic History: Reports: Anemia (as a child) - Infectious Disease History Infectious Disease History: Reports: Chicken Pox - Past Surgical History GI Surgical History: Reports: Colonoscopy, EGD, Hernia, Abdominal (x 2) Female Surgical History: Reports: Section (x 1), Hysterectomy, Salpingo-Oophorectomy Endocrine Surgical History: Reports: Thyroidectomy (complete) Musculoskeletal Surgical History: Reports: Shoulder Surgery (right, arthroscopic ), Other (See Below) (Right wrist connective tissue repair) Dermatological Surgical History: Reports: Skin Biopsy (benign) Social & Family History - Family History Family Medical History: Noncontributory - Tobacco Use Smoking Status *Q: Never Smoker - Caffeine Use Caffeine Use: Reports: Coffee, Soda - Alcohol Use Alcohol Use History: Yes Alcohol Use Frequency: Rarely - Recreational Drug Use Recreational Drug Use: No - Living Situation & Occupation Living situation: Reports: , with Spouse Occupation: Unemployed ED ROS GENERAL - Review of Systems Review Of Systems: ROS reveals no pertinent complaints other than HPI. ED EXAM, GENERAL - Physical Exam Exam: See Below Exam Limited By: No Limitations General Appearance: Alert, WD/WN, No Apparent Distress Eye Exam: Bilateral Eye: EOMI, Normal Inspection Ears: Normal External Exam, Hearing Grossly Normal Nose: Normal Inspection Throat/Mouth: Normal Inspection, Normal Lips, Normal Voice, No Airway Compromise Head: Atraumatic, Normocephalic Neck: Normal Inspection, Supple, Non-Tender, Full Range of Motion, Other (Pain in the patient's left shoulder and left upper extremity not induced with the patient turning her head fully to the left or right, tipping her chin to her chest, or fully extending her neck. Pain not induced with compressing the neck.) . No: Tender Lateral, Tender Midline Respiratory/Chest: No Respiratory Distress, Lungs Clear, Normal Breath Sounds, No Accessory Muscle Use Cardiovascular: Normal Peripheral Pulses, Regular Rate, Rhythm (frequent extra beats), No Edema, No Gallop, No JVD, No Murmur, No Rub Peripheral Pulses: 4+: Radial (L), Radial (R) GI/Abdominal: Normal Bowel Sounds, Soft, Non-Tender, No Organomegaly, No Distention, No Abnormal Bruit, No Mass, Other (Obese) (Female) Exam: Deferred Rectal (Female) Exam: Deferred Back Exam: Normal Inspection, Full Range of Motion, NT Extremities: Normal Inspection, Normal Range of Motion, No Pedal Edema, Normal Capillary Refill, Other (No tenderness to palpation of the left shoulder, left upper extremity, or left leg, however, there may be some reproducible tenderness to palpation along the left parascapular musculature.) Neurological: Alert, Oriented, Normal Cognition, No Motor/Sensory Deficits, Other (Straight leg raise on the left is negative to about 80) Psychiatric: Normal Affect Skin Exam: Warm, Dry, Intact, Normal Color, No Rash EKG INTERPRETATION EKG Date: 07/05/18 Time: 15:23 Rhythm: NSR Rate (Beats/Min): 73 Franklin: LAD-Left Franklin Deviation P-Wave: Present QRS: Normal ST-T: Normal QT: Normal Comparison: No Change (10/26/2017) Course - Vital Signs Last Recorded V/S: Last Vital Signs Temp 36.6 C 07/05/18 14:22 Pulse 80 07/05/18 14:22 Resp 20 07/05/18 14:22 BP 156/84 H 07/05/18 14:22 Pulse Ox 97 07/05/18 14:22 - Orders/Labs/Meds Orders: Active Orders 24 hr Category Date Time Status EKG Documentation Completion [RC] STAT Care 07/05/18 15:12 Active Chest 2V [CR] Stat Exams 07/05/18 15:12 Taken VL Duplex Lwr Ext Veins Ltd Lt [US] Stat Exams 07/05/18 15:13 Ordered - Re-Assessments/Exams Free Text/Narrative Re-Assessment/Exam: 07/05/18 15:14 I suspect that the patient's neck, left shoulder, left upper extremity, and left parascapular muscle pain is due to cervical radiculopathy, due to arthritis , not herniated intervertebral discs, as her symptoms are not exacerbated by neck movements or cervical compression. A MRI would be needed to properly diagnose that, however, for today's purposes, I have ordered a chest x-ray just to make sure that there are no gross anatomic abnormalities that might be responsible for her symptoms. The patient's intermittent left leg pain may also be due to lumbar radiculopathy , and a MRI would be needed for that diagnosis, as well, however, for today's purposes, I have ordered a Doppler ultrasound of the left lower extremity to be certain that she does not have a DVT. In addition, the patient had several extra beats on auscultation of her heart. I 've ordered an ECG to evaluate. 07/05/18 16:18 2-view chest radiograph reviewed. Cardiac silhouette is within normal limits. No pulmonary vascular congestion. No pleural effusions. No focal infiltrate. No pneumothorax. Scoliosis incidentally noted. 2 right shoulder surgical anchors incidentally noted. Formal read per the Radiologist pending. 07/05/18 16:38 Notified by the termite technician that the Doppler ultrasound is negative for DVT. I will discharge the patient home. She plans to follow up with Dr. Kirill Wadsworth, in [place]. Dr. Wadsworth can order MRIs of the patient's cervical and lumbar spine , if she feels it is indicated. Departure - Departure Time of Disposition: 16:39 Disposition: Home, Self-Care 01 Condition: Good Clinical Impression: Cervical radiculopathy, Lumbar radiculopathy - Discharge Information *PRESCRIPTION DRUG MONITORING PROGRAM REVIEWED*: Not Applicable *COPY OF PRESCRIPTION DRUG MONITORING REPORT IN PATIENT ANANYA: Not Applicable Forms: ED Department Discharge Additional Instructions: You were seen in the emergency room for intermittent left neck and shoulder, left arm, left back, and left leg pain. Workup in the ER included an ECG, chest x-ray, and a Doppler ultrasound of your left lower extremity. Your entire workup was unremarkable. Your ECG was essentially normal, no anatomic abnormalities were found on your chest x-ray, and you do not have a blood clot in your left lower extremity. Based on your history, physical examination, and ER workup, we suspect that your symptoms are due to cervical and lumbar radiculopathy = nerve irritation due to arthritis in your neck and lower back. Follow-up with Dr. Kirill Wadsworth as a PCP. He can order outpatient MRIs of your neck and lumbar spine, if he feels they are indicated. If any other problems, please do not hesitate to return to the ER. - My Orders Last 24 Hours: My Active Orders 07/05/18 15:12 EKG Documentation Completion [RC] STAT Chest 2V [CR] Stat 07/05/18 15:13 VL Duplex Lwr Ext Veins Ltd Lt [US] Stat - Assessment/Plan Last 24 Hours: My Active Orders 07/05/18 15:12 EKG Documentation Completion [RC] STAT Chest 2V [CR] Stat 07/05/18 15:13 VL Duplex Lwr Ext Veins Ltd Lt [US] Stat
--- NOTE | 2018-07-05 16:57 | US ---
Left lower extremity deep venous ultrasound: Duplex and color flow imaging was obtained of the left common femoral, proximal greater saphenous, superficial femoral, popliteal, posterior tibial and peroneal veins. Right common femoral vein was also evaluated. Comparison: No previous venous ultrasound. Findings: Lack of phasic flow is noted within the posterior tibial vein but normal compression and augmentation is seen. Other veins show normal phasic flow, augmentation and compression. No cyst or solid finding is seen within the left lateral calf. Impression: 1. No evidence of deep venous thrombosis within the left lower extremity or within the right common femoral vein. 2. No ultrasound finding is seen within the left lateral calf. Diagnostic code #1
--- NOTE | 2018-07-06 07:13 | CR ---
Chest: Two views of the chest were obtained. Comparison: Prior chest x-ray of 10/26/17. Heart size at the upper limits of normal. Tortuous thoracic aorta is seen. Lungs are clear with no acute parenchymal change. Slight scoliosis is present within the spine. Previous right shoulder surgery is noted. Impression: 1. Incidental findings. Nothing acute is appreciated on two-view chest x-ray. Diagnostic code #2
== END 2018-07-05 16:59 | disposition home or self-care (01) ==
LOC: JD.ED 14:13
DX: M54.12 Radiculopathy, cervical region (principal); M54.16 Radiculopathy, lumbar region; Z88.8 Allergy status to other drugs, medicaments and biological substances; Z88.1 Allergy status to other antibiotic agents; Z88.6 Allergy status to analgesic agent; Z91.09 Other allergy status, other than to drugs and biological substances; Z91.041 Radiographic dye allergy status; Z91.040 Latex allergy status; Z79.899 Other long term (current) drug therapy
CPT/HCPCS: 71046; 71046-26; 93005; 93010; 93971-26-LT; 93971-LT; 99284-25

== ENCOUNTER 2018-10-01 12:13 | Emergency (ER) | payer BC ==
[2018-10-01 12:29] VITALS: BP 160/85
[2018-10-01] MEDS ORDERED: Orphenadrine 100 MG Tab.ER PO ONE (13:23)
[2018-10-01] MEDS ORDERED: Ibuprofen 600 MG Tab PO ONE (13:23)
--- NOTE | 2018-10-01 13:33 | EDM.PDOC ---
ED HPI GENERAL MEDICAL PROBLEM - General Chief Complaint: Lower Extremity Injury/Pain Stated Complaint: FELL ON ICE MULTIPLE INJURIES Time Seen by Provider: 10/01/18 12:36 Source of Information: Reports: Patient, RN Notes Reviewed History Limitations: Reports: No Limitations - History of Present Illness INITIAL COMMENTS - FREE TEXT/NARRATIVE: Patient is a 62 year old female who presents to the ED for the evaluation of injury after a fall on the ice. She states that she was walking around her car around 10AM this morning, when she fell and slipped on the ice and landed on her knees and hands. She denies any head injury or LOC. She states that she has pain mainly in her left knee and across the back of her right hand. She is still able to walk okay, but does have some pain with walking. She would rate her pain at an 8/10 and she did not take any medications or ice the areas before arrival. She did try to go to clinics, but none of them had openings to evaluate her. She further denies any left hip or ankle/foot pain, or any right wrist, elbow or shoulder pain. She states that she has had previous repair done on her right shoulder. She also notes some pain in her neck. Left Knee Pain Score (Numeric/FACES): 8 - Related Data Allergies Allergy/AdvReac Type Severity Reaction Status Date / Time gluten Allergy Severe Swelling Verified 10/01/18 12:29 zolpidem tartrate Allergy Severe Swelling Verified 10/01/18 12:29 [From Ambien] adhesive Allergy Mild Rash Verified 10/01/18 12:29 acetaminophen [From Endocet] Allergy Unknown Cannot Verified 10/01/18 12:29 Remember indomethacin Allergy Unknown Cannot Verified 10/01/18 12:29 Remember iodine Allergy Unknown Cannot Verified 10/01/18 12:29 Remember oxycodone HCl [From Endocet] Allergy Unknown Cannot Verified 10/01/18 12:29 Remember red dye Allergy Unknown Swelling Verified 10/01/18 12:29 cetirizine HCl [From Zyrtec] Allergy Rash Verified 10/01/18 12:29 clarithromycin [From Biaxin] Allergy Rash Verified 10/01/18 12:29 clobetasol Allergy Cannot Verified 10/01/18 12:29 Remember clotrimazole Allergy Rash Verified 10/01/18 12:29 doxycycline Allergy Rash Verified 10/01/18 12:29 ezetimibe [From Zetia] Allergy Rash Verified 10/01/18 12:29 Iodinated Contrast- Oral and Allergy Rash Verified 10/01/18 12:29 IV Dye latex Allergy Rash Verified 10/01/18 12:29 levofloxacin Allergy Rash Verified 10/01/18 12:29 licorice Allergy Rash Verified 10/01/18 12:29 loratadine [From Claritin] Allergy Rash Verified 10/01/18 12:29 monosodium glutamate Allergy Hives Verified 10/01/18 12:29 omeprazole Allergy Rash Verified 10/01/18 12:29 pravastatin Allergy Cannot Verified 10/01/18 12:29 Remember prednisone Allergy Hives Verified 10/01/18 12:29 rosuvastatin [From Crestor] Allergy Rash Verified 10/01/18 12:29 cefdinir AdvReac Vomiting Verified 10/01/18 12:29 famotidine [From Pepcid] AdvReac Stomach Verified 10/01/18 12:29 Upset benzidine Allergy Cannot Uncoded 10/01/18 12:29 Remember bromochlorosalicylanilide Allergy Cannot Uncoded 10/01/18 12:29 Remember Home Meds: Home Meds Levothyroxine [Synthroid] 150 mcg PO CHAMPION 04/05/16 [History] Cholecalciferol (Vitamin D3) [Vitamin D] 5,000 unit PO DAILY 07/18/17 [History] Levothyroxine 100 mcg PO MOTUWETHFRSA 07/18/17 [History] Multivitamin [One Daily] 1 each PO DAILY 07/18/17 [History] Ubidecarenone [COQ-10] 30 mg PO DAILY 07/18/17 [History] Ascorbic Acid [Vitamin C] 1,000 mg PO DAILY 10/01/17 [History] Orphenadrine [Norflex] 100 mg PO BID PRN #20 tab 10/01/18 [Rx] Past Medical History - Past Health History Medical/Surgical History: Denies Medical/Surgical History HEENT History: Reports: Impaired Vision Other HEENT History: Wears glasses Cardiovascular History: Reports: High Cholesterol Other Cardiovascular History: tia in the past Respiratory History: Reports: Pneumonia, Recurrent Other Respiratory History: Pt states "I got the pneumonia shot, so now they are hoping that will take care of it." Gastrointestinal History: Reports: Colon Polyp 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 Neurological History: Reports: TIA Psychiatric History: Reports: Anxiety Endocrine/Metabolic History: Reports: Hypothyroidism Hematologic History: Reports: Anemia Other Hematologic History: Patient states "was anemic as a child." - Infectious Disease History Infectious Disease History: Reports: Chicken Pox - Past Surgical History GI Surgical History: Reports: Colonoscopy, EGD, Hernia, Abdominal Female Surgical History: Reports: Section, Hysterectomy, Salpingo- Oophorectomy Endocrine Surgical History: Reports: Thyroidectomy Musculoskeletal Surgical History: Reports: Shoulder Surgery, Other (See Below) Dermatological Surgical History: Reports: Skin Biopsy Social & Family History - Family History Family Medical History: Noncontributory - Tobacco Use Smoking Status *Q: Never Smoker Second Hand Smoke Exposure: No - Caffeine Use Caffeine Use: Reports: Coffee - Recreational Drug Use Recreational Drug Use: No - Living Situation & Occupation Living situation: Reports: , with Spouse Occupation: Unemployed Review of Systems - Review of Systems Review Of Systems: See Below Constitutional: Reports: No Symptoms Eyes: Reports: No Symptoms Ears: Reports: No Symptoms Nose: Reports: No Symptoms Mouth/Throat: Reports: No Symptoms Respiratory: Reports: No Symptoms Cardiovascular: Reports: No Symptoms GI/Abdominal: Reports: No Symptoms Genitourinary: Reports: No Symptoms Musculoskeletal: Reports: Neck Pain, Joint Pain (L knee and R hand) Skin: Reports: Lesions (abrasion to left knee) Neurological: Reports: No Symptoms Psychiatric: Reports: No Symptoms ED EXAM, GENERAL - Physical Exam Exam: See Below Exam Limited By: No Limitations General Appearance: Alert, WD/WN, No Apparent Distress Eye Exam: Bilateral Eye: EOMI, Normal Inspection, PERRL Ears: Normal External Exam Nose: Normal Inspection Throat/Mouth: Normal Inspection, Normal Oropharynx, No Airway Compromise Head: Atraumatic, Normocephalic Neck: Normal Inspection, Supple, Non-Tender, Full Range of Motion Respiratory/Chest: No Respiratory Distress, Lungs Clear, Normal Breath Sounds, No Accessory Muscle Use, Chest Non-Tender Cardiovascular: Normal Peripheral Pulses, Regular Rate, Rhythm, No Murmur GI/Abdominal: Normal Bowel Sounds, Soft, Non-Tender, No Distention, No Mass Extremities: Normal Inspection, Normal Capillary Refill Neurological: Alert, Oriented, Normal Cognition, No Motor/Sensory Deficits Psychiatric: Normal Affect, Normal Mood Skin Exam: Warm, Dry, Intact, Normal Color, No Rash Course - Vital Signs Last Recorded V/S: Last Vital Signs Temp 97.7 F 10/01/18 12:22 Pulse 75 10/01/18 12:22 Resp 20 10/01/18 12:22 BP 160/85 H 10/01/18 12:22 Pulse Ox 95 10/01/18 12:22 - Orders/Labs/Meds Meds: Medications Discontinued Medications Generic Name Dose Route Start Last Admin Trade Name Patricia PRN Reason Stop Dose Admin Ibuprofen 600 mg 10/01/18 13:23 10/01/18 13:35 Motrin PO 10/01/18 13:24 600 mg ONETIME ONE Administration Orphenadrine Citrate 100 mg 10/01/18 13:23 10/01/18 13:35 Norflex PO 10/01/18 13:24 100 mg ONETIME ONE Administration - Re-Assessments/Exams Free Text/Narrative Re-Assessment/Exam: 10/01/18 13:37 Pt presents to the ED for evaluation of injury s/p fall. X-ray of Right hand and left knee have been obtained to r/o possibility of fracture. 600mg ibuprofen PO and 100mg Norflex PO have been ordered for general pain management. 10/01/18 13:45 x-rays do not demonstrate any acute abnormalities on the left knee or right hand x-ray, only mild degenerative changes. Will recommend NSAID therapy and ice with elevation and rest. Departure - Departure Time of Disposition: 14:40 Disposition: Home, Self-Care 01 Condition: Fair Clinical Impression: Right hand pain Knee contusion Qualifiers: Encounter type: initial encounter Laterality: left Qualified Code(s): S80.02XA - Contusion of left knee, initial encounter Fall from slipping on ice Qualifiers: Encounter type: initial encounter Qualified Code(s): W00.9XXA - Unspecified fall due to ice and snow, initial encounter - Discharge Information *PRESCRIPTION DRUG MONITORING PROGRAM REVIEWED*: No *COPY OF PRESCRIPTION DRUG MONITORING REPORT IN PATIENT ANANYA: No Instructions: Contusion, [id number], Osteoarthritis Referrals: Altagracia Vicente MD [Primary Care Provider] - Forms: ED Department Discharge Additional Instructions: You have been evaluated in the ED for your left knee pain and right hand pain Your x-ray demonstrated no acute fracture of your right hand or left knee. Please use ice as tolerated to the affected area. Please rest over the weekend to provide further pain relief. Please use the wrist splint for right hand pain. Recommend follow up with primary care provider if pain is not better in 1-2 weeks time You may take tylenol 500 mg or ibuprofen 600mg q6 hrs for pain relief. Please do so until you have a tolerable level of pain with activity. Do not exceed 4000mg tylenol in one day. Do not exceed 3200mg ibuprofen in one day. You have been provided Norflex, this is a muscle relaxer, please use twice daily as needed for muscle spasms. Please return to ED if your symptoms should change or worsen.
--- NOTE | 2018-10-01 13:43 | CR ---
Left knee: Four views of the left knee were obtained. Comparison: No prior knee exam. Moderate medial joint space narrowing is seen. Lateral joint space is preserved. No joint effusion is seen. No acute fracture or other abnormality is identified. Impression: 1. Medial joint space narrowing as noted above. Nothing acute is appreciated on left knee study. Diagnostic code #2
--- NOTE | 2018-10-01 13:43 | CR ---
Right hand: Four views of the right hand were obtained. Comparison: No prior hand exam. Mild joint space narrowing is noted within the DIP joints. Joint space narrowing is noted about the distal navicular bone. Cystic change is seen within the distal navicular bone. No acute fracture or other bony abnormality is seen. Impression: 1. Slight degenerative change. Nothing acute is appreciated on right hand study. Diagnostic code #2
== END 2018-10-01 14:55 | disposition home or self-care (01) ==
LOC: JD.ED 12:13
DX: S80.02XA Contusion of left knee, initial encounter (principal); M79.641 Pain in right hand; W00.9XXA Unspecified fall due to ice and snow, initial encounter; E78.00 Pure hypercholesterolemia, unspecified; E03.9 Hypothyroidism, unspecified; Z88.8 Allergy status to other drugs, medicaments and biological substances; Z79.899 Other long term (current) drug therapy
CPT/HCPCS: 73130; 73564; 99284; A9270

== ENCOUNTER 2018-12-26 15:32 | Emergency (ER) | payer BC, MEDICARE ==
[2018-12-26 15:48] VITALS: BP 175/91
[2018-12-26] MEDS ORDERED: Sodium Chloride 0.9% 10 ML Syringe FLUSH PRN (15:56)
[2018-12-26] MEDS ORDERED: Ondansetron 4 MG/2 ML SDV IVPUSH ONE (16:09)
--- NOTE | 2018-12-26 16:40 | EDM.PDOC ---
ED HPI GENERAL MEDICAL PROBLEM - General Chief Complaint: Chest Pain Stated Complaint: CHEST TIGHTNESS Time Seen by Provider: 12/26/18 15:42 Source of Information: Reports: Patient, RN Notes Reviewed - History of Present Illness INITIAL COMMENTS - FREE TEXT/NARRATIVE: 63-year-old lady comes in with anterior chest discomfort. She's had this off and on yesterday and today as well as occasionally in the past. She's been feeling more short of breath for this past week or so, especially exertional. No recent cough fever or chills. No abdominal pain nausea or vomiting. She states she has had fluid retention in her lungs in the past. She does not currently take medication for hypertension, heart or lungs. She does not smoke. 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 SCIENTIST: took 3 baby aspirin about 1 hour ago at home-about 1400 Middle Chest Pain Score (Numeric/FACES): 5 - Related Data Allergies Allergy/AdvReac Type Severity Reaction Status Date / Time gluten Allergy Severe Swelling Verified 10/01/18 12:29 zolpidem tartrate Allergy Severe Swelling Verified 10/01/18 12:29 [From Ambien] adhesive Allergy Mild Rash Verified 10/01/18 12:29 acetaminophen [From Endocet] Allergy Unknown Cannot Verified 10/01/18 12:29 Remember indomethacin Allergy Unknown Cannot Verified 10/01/18 12:29 Remember iodine Allergy Unknown Cannot Verified 10/01/18 12:29 Remember oxycodone HCl [From Endocet] Allergy Unknown Cannot Verified 10/01/18 12:29 Remember red dye Allergy Unknown Swelling Verified 10/01/18 12:29 cetirizine HCl [From Zyrtec] Allergy Rash Verified 10/01/18 12:29 clarithromycin [From Biaxin] Allergy Rash Verified 10/01/18 12:29 clobetasol Allergy Cannot Verified 10/01/18 12:29 Remember clotrimazole Allergy Rash Verified 10/01/18 12:29 doxycycline Allergy Rash Verified 10/01/18 12:29 ezetimibe [From Zetia] Allergy Rash Verified 10/01/18 12:29 Iodinated Contrast- Oral and Allergy Rash Verified 10/01/18 12:29 IV Dye latex Allergy Rash Verified 10/01/18 12:29 levofloxacin Allergy Rash Verified 10/01/18 12:29 licorice Allergy Rash Verified 10/01/18 12:29 loratadine [From Claritin] Allergy Rash Verified 10/01/18 12:29 monosodium glutamate Allergy Hives Verified 10/01/18 12:29 omeprazole Allergy Rash Verified 10/01/18 12:29 pravastatin Allergy Cannot Verified 10/01/18 12:29 Remember prednisone Allergy Hives Verified 10/01/18 12:29 rosuvastatin [From Crestor] Allergy Rash Verified 10/01/18 12:29 cefdinir AdvReac Vomiting Verified 10/01/18 12:29 famotidine [From Pepcid] AdvReac Stomach Verified 10/01/18 12:29 Upset benzidine Allergy Cannot Uncoded 10/01/18 12:29 Remember bromochlorosalicylanilide Allergy Cannot Uncoded 10/01/18 12:29 Remember Home Meds: Home Meds Levothyroxine [Synthroid] 150 mcg PO CHAMPION 04/05/16 [History] Cholecalciferol (Vitamin D3) [Vitamin D] 1,000 unit PO DAILY 07/18/17 [History] Levothyroxine 100 mcg PO MOTUWETHFRSA 07/18/17 [History] Multivitamin [One Daily] 1 each PO DAILY 07/18/17 [History] Ubidecarenone [COQ-10] 30 mg PO DAILY 07/18/17 [History] Past Medical History - Past Health History Medical/Surgical History: Denies Medical/Surgical History HEENT History: Reports: Impaired Vision Other HEENT History: Wears glasses Cardiovascular History: Reports: High Cholesterol Other Cardiovascular History: tia in the past Respiratory History: Reports: Pneumonia, Recurrent Other Respiratory History: Pt states "I got the pneumonia shot, so now they are hoping that will take care of it." Gastrointestinal History: Reports: Colon Polyp 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 Neurological History: Reports: TIA Psychiatric History: Reports: Anxiety Endocrine/Metabolic History: Reports: Hypothyroidism Hematologic History: Reports: Anemia Other Hematologic History: Patient states "was anemic as a child." - Infectious Disease History Infectious Disease History: Reports: Chicken Pox - Past Surgical History GI Surgical History: Reports: Colonoscopy, EGD, Hernia, Abdominal Female Surgical History: Reports: Section, Hysterectomy, Salpingo- Oophorectomy Endocrine Surgical History: Reports: Thyroidectomy Musculoskeletal Surgical History: Reports: Shoulder Surgery, Other (See Below) Dermatological Surgical History: Reports: Skin Biopsy Social & Family History - Family History Family Medical History: Noncontributory - Tobacco Use Smoking Status *Q: Never Smoker - Caffeine Use Caffeine Use: Reports: Coffee, Soda - Recreational Drug Use Recreational Drug Use: No - Living Situation & Occupation Living situation: Reports: , with Spouse Occupation: Unemployed ED ROS GENERAL - Review of Systems Review Of Systems: See Below Constitutional: Denies: Fever, Chills, Diaphoresis HEENT: Denies: Sinus Problem, Throat Pain Respiratory: Reports: Shortness of Breath. Denies: Wheezing, Pleuritic Chest Pain, Cough Cardiovascular: Reports: Chest Pain GI/Abdominal: Denies: Abdominal Pain, Nausea, Vomiting Musculoskeletal: Denies: Shoulder Pain, Arm Pain Skin: Reports: No Symptoms Neurological: Reports: No Symptoms ED EXAM, GENERAL - Physical Exam Exam: See Below General Appearance: Alert, No Apparent Distress Nose: Normal Inspection Throat/Mouth: Normal Inspection, Normal Oropharynx Head: Atraumatic. No: Facial Swelling Neck: Supple, Full Range of Motion, Other (No JVD) Respiratory/Chest: No Respiratory Distress, Lungs Clear, Normal Breath Sounds. No: Rhonchi, Wheezing Cardiovascular: Regular Rate, Rhythm GI/Abdominal: Soft, Non-Tender Extremities: Normal Inspection. No: Pedal Edema, Leg Pain Neurological: Alert, Oriented, No Motor/Sensory Deficits Skin Exam: Warm, Dry, Normal Color EKG INTERPRETATION EKG Date: 12/26/18 Rhythm: NSR P-Wave: Present QRS: Other (There are small Q waves in lead 3 and aVF) ST-T: Normal (No ST elevation or depression.) Course - Vital Signs Last Recorded V/S: Last Vital Signs Temp 98.0 F 12/26/18 15:47 Pulse 70 12/26/18 15:47 Resp 18 12/26/18 15:47 BP 175/91 H 12/26/18 15:47 Pulse Ox 94 L 12/26/18 15:47 - Orders/Labs/Meds Orders: Active Orders 24 hr Category Date Time Status EKG 12 Lead [EKG Documentation Completion] [RC] STAT Care 12/26/18 15:56 Active Peripheral IV Care [RC] . DIRECTED Care 12/26/18 15:57 Active Chest 1V Frontal [CR] Stat Exams 12/26/18 16:07 Taken Sodium Chloride 0.9% [Saline Flush] Med 12/26/18 15:56 Active 10 ml FLUSH ASDIRECTED PRN Peripheral IV Insertion Adult [OM.PC] Stat Oth 12/26/18 15:56 Ordered Medication Orders Sodium Chloride (Saline Flush) 10 ml FLUSH ASDIRECTED PRN PRN Reason: Keep Vein Open Last Admin: 12/26/18 15:50 Dose: 10 ml Labs: Laboratory Tests 12/26/18 12/26/18 12/26/18 Range/Units 15:50 15:50 15:50 WBC 7.00 (3.98-10.04) K/mm3 RBC 4.53 (3.98-5.22) M/mm3 Hgb 12.8 (11.2-15.7) gm/L Hct 38.7 (34.1-44.9) % MCV 85.4 (79.4-94.8) fl MCH 28.3 (25.6-32.2) pg MCHC 33.1 (32.2-35.5) g/dl RDW Std Deviation 44.6 (36.4-46.3) fL Plt Count 208 (182-369) K/mm3 MPV 11.4 (9.4-12.3) fl Neut % (Auto) 57.1 (34.0-71.1) % Lymph % (Auto) 31.6 (19.3-51.7) % [place] % (Auto) 9.7 (4.7-12.5) % Eos % (Auto) 1.1 (0.7-5.8) Baso % (Auto) 0.4 (0.1-1.2) % Neut # (Auto) 3.99 (1.56-6.13) K/mm3 Lymph # (Auto) 2.21 (1.18-3.74) K/mm3 [place] # (Auto) 0.68 H (0.24-0.36) K/mm3 Eos # (Auto) 0.08 (0.04-0.36) K/mm3 Baso # (Auto) 0.03 (0.01-0.08) K/mm3 Sodium 140 (136-145) mEq/L Potassium 3.6 (3.5-5.1) mEq/L Chloride 104 (98-107) mEq/L Carbon Dioxide 25 (21-32) mEq/L Anion Gap 14.6 (5-15) BUN 14 (7-18) mg/dL Creatinine 0.7 (0.55-1.02) mg/dL Est Cr Clr Drug Dosing 58.32 mL/min Estimated GFR (MDRD) > 60 (>60) mL/min BUN/Creatinine Ratio 20.0 H (14-18) Glucose 95 (80-115) mg/dL Calcium 10.2 H (8.5-10.1) mg/dL Total Bilirubin 0.3 (0.2-1.0) mg/dL AST 20 (15-37) U/L ALT 28 (14-59) U/L Alkaline Phosphatase 65 (46-116) U/L Troponin I < 0.017 (0.00-0.056) ng/mL NT-Pro-B Natriuret Pep 73 (0-125) pg/mL Total Protein 8.1 (6.4-8.2) g/dl Albumin 4.1 (3.4-5.0) g/dl Globulin 4.0 gm/dL Albumin/Globulin Ratio 1.0 (1-2) 12/26/18 Range/Units 17:50 WBC (3.98-10.04) K/mm3 RBC (3.98-5.22) M/mm3 Hgb (11.2-15.7) gm/L Hct (34.1-44.9) % MCV (79.4-94.8) fl MCH (25.6-32.2) pg MCHC (32.2-35.5) g/dl RDW Std Deviation (36.4-46.3) fL Plt Count (182-369) K/mm3 MPV (9.4-12.3) fl Neut % (Auto) (34.0-71.1) % Lymph % (Auto) (19.3-51.7) % [place] % (Auto) (4.7-12.5) % Eos % (Auto) (0.7-5.8) Baso % (Auto) (0.1-1.2) % Neut # (Auto) (1.56-6.13) K/mm3 Lymph # (Auto) (1.18-3.74) K/mm3 [place] # (Auto) (0.24-0.36) K/mm3 Eos # (Auto) (0.04-0.36) K/mm3 Baso # (Auto) (0.01-0.08) K/mm3 Sodium (136-145) mEq/L Potassium (3.5-5.1) mEq/L Chloride (98-107) mEq/L Carbon Dioxide (21-32) mEq/L Anion Gap (5-15) BUN (7-18) mg/dL Creatinine (0.55-1.02) mg/dL Est Cr Clr Drug Dosing mL/min Estimated GFR (MDRD) (>60) mL/min BUN/Creatinine Ratio (14-18) Glucose (80-115) mg/dL Calcium (8.5-10.1) mg/dL Total Bilirubin (0.2-1.0) mg/dL AST (15-37) U/L ALT (14-59) U/L Alkaline Phosphatase (46-116) U/L Troponin I < 0.017 (0.00-0.056) ng/mL NT-Pro-B Natriuret Pep (0-125) pg/mL Total Protein (6.4-8.2) g/dl Albumin (3.4-5.0) g/dl Globulin gm/dL Albumin/Globulin Ratio (1-2) Meds: Medications Generic Name Dose Route Start Last Admin Trade Name Freq PRN Reason Stop Dose Admin Sodium Chloride 10 ml 12/26/18 15:56 12/26/18 15:50 Saline Flush FLUSH 10 ml ASDIRECTED PRN Administration Keep Vein Open Discontinued Medications Generic Name Dose Route Start Last Admin Trade Name Freq PRN Reason Stop Dose Admin Ondansetron HCl 4 mg 12/26/18 16:09 12/26/18 16:15 Zofran IVPUSH 12/26/18 16:10 4 mg ONETIME ONE Administration - Re-Assessments/Exams Free Text/Narrative Re-Assessment/Exam: 12/26/18 17:25 EKG does not show acute findings, troponin did come back normal, chest x-ray looks normal. ProBNP also normal. She does have a strong family history for heart disease. She and her are appropriately concerned. We will have her stay and control a 2 hour troponin is well. Also plan to get her scheduled for cardiac echocardiogram. 12/26/18 19:01. Repeat troponin also did come back negative, discharge instructions as documented. Departure - Departure Time of Disposition: 18:44 Disposition: Home, Self-Care 01 Condition: Fair Clinical Impression: Atypical chest pain Dyspnea Qualifiers: Dyspnea type: dyspnea on exertion Qualified Code(s): R06.09 - Other forms of dyspnea Instructions: Shortness of Breath, Adult, [id number], Nonspecific Chest Pain , [id number] Referrals: Kirill Verma MD [Primary Care Provider] - Forms: ED Department Discharge Additional Instructions: Continue current medications, cardiac echocardiogram. Radiology will call you Friday morning to get you scheduled for a time to come in and do that. Check your blood pressure 2 or 3 times daily, keep a record for your regular medical provider to review next visit. On the follow-up with Dr. Verma in about 9-10 days, call for appointment. Return to ED as needed if symptoms worsening in any way. - My Orders Last 24 Hours: My Active Orders 12/26/18 15:56 EKG 12 Lead [EKG Documentation Completion] [RC] STAT Sodium Chloride 0.9% [Saline Flush] 10 ml FLUSH ASDIRECTED PRN Peripheral IV Insertion Adult [OM.PC] Stat 12/26/18 15:57 Peripheral IV Care [RC] . DIRECTED 12/26/18 16:07 Chest 1V Frontal [CR] Stat - Assessment/Plan Last 24 Hours: My Active Orders 12/26/18 15:56 EKG 12 Lead [EKG Documentation Completion] [RC] STAT Sodium Chloride 0.9% [Saline Flush] 10 ml FLUSH ASDIRECTED PRN Peripheral IV Insertion Adult [OM.PC] Stat 12/26/18 15:57 Peripheral IV Care [RC] . DIRECTED 12/26/18 16:07 Chest 1V Frontal [CR] Stat
--- NOTE | 2018-12-27 13:07 | CR ---
Chest: Portable view of the chest was obtained. Comparison: Prior chest x-ray of 07/05/18. Heart size at the upper limits of normal. Tortuous thoracic aorta is seen. Lungs are clear. Previous right shoulder surgery is noted. Minimal scoliosis is seen within the spine. Impression: 1. Incidental findings. Nothing acute is seen. Diagnostic code #2
== END 2018-12-26 19:05 | disposition home or self-care (01) ==
LOC: JD.ED 15:32
DX: R07.89 Other chest pain (principal); R06.09 Other forms of dyspnea; E78.00 Pure hypercholesterolemia, unspecified; Z88.8 Allergy status to other drugs, medicaments and biological substances; Z79.899 Other long term (current) drug therapy
CPT/HCPCS: 36415; 71045; 80053; 83880; 84484; 85025; 93005; 96374; 99285; J2405; 93010; 99284

== ENCOUNTER 2019-08-27 23:03 | Emergency (ER) | payer BC, MEDICARE ==
[2019-08-27 23:16] VITALS: BP 173/84; PULSE 88
[2019-08-27] MEDS ORDERED: Ondansetron 4 MG/2 ML SDV IVPUSH ONE (23:27)
[2019-08-27] MEDS ORDERED: Sodium Chloride 0.9% 1,000 ML IV SCH (23:30)
--- NOTE | 2019-08-27 23:37 | EDM.PDOC ---
ED HPI GENERAL MEDICAL PROBLEM - General Chief Complaint: Abdominal Pain Stated Complaint: ABDOMINAL PAIN Time Seen by Provider: 08/27/19 23:13 Source of Information: Reports: Patient, Family () History Limitations: Reports: No Limitations - History of Present Illness INITIAL COMMENTS - FREE TEXT/NARRATIVE: Ms. Root is a pleasant 63-year-old woman with a past medical history significant for untreated anxiety, who states that she has had lower abdominal cramps waxing and waning over the past 2 weeks, approximately. Her discomfort is made worse by walking, and is improved by sitting. She developed nausea today , but has not had any emesis. She reports mid-back pain for about 2 weeks. She has had occasional chills, but no recent fever. She also reports alternating watery diarrhea and constipation for the past 2 months, approximately. She has not had any dysuria, but does state that she needs to urinate often. No prior similar symptoms. The patient still has her appendix and gallbladder. The patient states that she has not taken any [id number] or home remedies to treat her symptoms. No prior medical evaluation for these complaints. The patient's PCP is Dr. Franklin Keita. Her Cylinder Machine Operator Pulp Drier is Dr. Lionel Centeno. Her General Surgeon is Dr. Darren Singh. Her Orthopedic Surgeon is Dr. Artem South. The patient has not received an influenza vaccine this season, but refused one here. Abdominal Pain Score (Numeric/FACES): 8 - Related Data Allergies Allergy/AdvReac Type Severity Reaction Status Date / Time gluten Allergy Severe Swelling Verified 08/27/19 23:16 zolpidem tartrate Allergy Severe Swelling Verified 08/27/19 23:16 [From Ambien] adhesive Allergy Mild Rash Verified 08/27/19 23:16 acetaminophen [From Endocet] Allergy Unknown Cannot Verified 08/27/19 23:16 Remember indomethacin Allergy Unknown Cannot Verified 08/27/19 23:16 Remember iodine Allergy Unknown Cannot Verified 08/27/19 23:16 Remember oxycodone HCl [From Endocet] Allergy Unknown Cannot Verified 08/27/19 23:16 Remember red dye Allergy Unknown Swelling Verified 08/27/19 23:16 cetirizine HCl [From Zyrtec] Allergy Rash Verified 08/27/19 23:16 clarithromycin [From Biaxin] Allergy Rash Verified 08/27/19 23:16 clobetasol Allergy Cannot Verified 08/27/19 23:16 Remember clotrimazole Allergy Rash Verified 08/27/19 23:16 doxycycline Allergy Rash Verified 08/27/19 23:16 ezetimibe [From Zetia] Allergy Rash Verified 08/27/19 23:16 latex Allergy Rash Verified 08/27/19 23:16 levofloxacin Allergy Rash Verified 08/27/19 23:16 licorice Allergy Rash Verified 08/27/19 23:16 loratadine [From Claritin] Allergy Rash Verified 08/27/19 23:16 monosodium glutamate Allergy Hives Verified 08/27/19 23:16 omeprazole Allergy Rash Verified 08/27/19 23:16 pravastatin Allergy Cannot Verified 08/27/19 23:16 Remember prednisone Allergy Hives Verified 08/27/19 23:16 rosuvastatin [From Crestor] Allergy Rash Verified 08/27/19 23:16 cefdinir AdvReac Vomiting Verified 08/27/19 23:16 famotidine [From Pepcid] AdvReac Stomach Verified 08/27/19 23:16 Upset benzidine Allergy Cannot Uncoded 10/01/18 12:29 Remember bromochlorosalicylanilide Allergy Cannot Uncoded 10/01/18 12:29 Remember Home Meds: Home Meds Levothyroxine [Synthroid] 100 mcg PO CHAMPION 04/05/16 [History] Evolocumab [Repatha Syringe] 1 dose IM ASDIRECTED 08/27/19 [History] Past Medical History HEENT History: Reports: Impaired Vision Other HEENT History: wears glasses Cardiovascular History: Reports: High Cholesterol Gastrointestinal History: Reports: Colon Polyp [employer] History: Reports: Spontaneous (x 1) : 7 Para: 6 Neurological History: Reports: TIA (possible) Psychiatric History: Reports: Anxiety Endocrine/Metabolic History: Reports: Hypothyroidism (following thyroidectomy) - Infectious Disease History Infectious Disease History: Reports: Chicken Pox - Past Surgical History GI Surgical History: Reports: Colonoscopy (x 5), EGD (x 5), Hernia, Abdominal ( x 2) Female Surgical History: Reports: Section (x 1), Hysterectomy ( complete) Endocrine Surgical History: Reports: Thyroidectomy (complete) Musculoskeletal Surgical History: Reports: Shoulder Surgery (right, arthroscopic ), Other (See Below) (Right wrist connective tissue repair) Dermatological Surgical History: Reports: Skin Biopsy (from back - benign) Social & Family History - Family History Family Medical History: Noncontributory - Tobacco Use Smoking Status *Q: Never Smoker - Caffeine Use Caffeine Use: Reports: Coffee, Soda - Alcohol Use Alcohol Use History: No - Recreational Drug Use Recreational Drug Use: No - Living Situation & Occupation Living situation: Reports: , with Spouse Occupation: Unemployed ED ROS GENERAL - Review of Systems Review Of Systems: Comprehensive ROS is negative, except as noted in HPI. ED EXAM, GI/ABD - Physical Exam Exam: See Below Exam Limited By: No Limitations General Appearance: Alert, WD/WN, No Apparent Distress, Anxious Eyes: Bilateral: Normal Appearance, EOMI Ears: Normal External Exam, Hearing Grossly Normal Nose: Normal Inspection Throat/Mouth: Normal Inspection, Normal Lips, Normal Voice, No Airway Compromise Head: Atraumatic, Normocephalic Neck: Normal Inspection, Full Range of Motion Respiratory/Chest: No Respiratory Distress, Lungs Clear, Normal Breath Sounds, No Accessory Muscle Use Cardiovascular: Normal Peripheral Pulses, Regular Rate, Rhythm, No Edema, No Gallop, No JVD, No Murmur, No Rub GI/Abdominal Exam: Normal Bowel Sounds, Soft, No Organomegaly, No Distention, No Abnormal Bruit, No Mass, Tender (Lower abdomen only. Nontender elsewhere.) (Female) Exam: Deferred Rectal (Female) Exam: Deferred Back Exam: Normal Inspection, Full Range of Motion, CVA Tenderness (R) (slight) . No: CVA Tenderness (L) Extremities: Normal Inspection, Normal Range of Motion, No Pedal Edema, Normal Capillary Refill Neurological: Alert, Oriented, Normal Cognition, No Motor/Sensory Deficits Psychiatric: Anxious (Jumpy) Skin Exam: Warm, Dry, Intact, Normal Color, No Rash Course - Vital Signs Last Recorded V/S: Last Vital Signs Temp 36.1 C 08/27/19 23:11 Pulse 88 08/27/19 23:11 Resp 20 08/27/19 23:11 BP 173/84 H 08/27/19 23:11 Pulse Ox 95 08/27/19 23:11 - Orders/Labs/Meds Orders: Active Orders 24 hr Category Date Time Status Abdomen Pelvis w Cont [CT] Stat Exams 08/28/19 00:01 Taken Sodium Chloride 0.9% [Normal Saline] 1,000 ml Med 08/27/19 23:30 Active IV ASDIRECTED Sodium Chloride 0.9% [Saline Flush] Med 08/28/19 00:40 Active 20 ml FLUSH ONETIME PRN Medication Orders Sodium Chloride (Normal Saline) 1,000 mls @ 150 mls/hr IV ASDIRECTED NATHAN Last Admin: 08/27/19 23:34 Dose: 150 mls/hr Sodium Chloride (Saline Flush) 20 ml FLUSH ONETIME PRN PRN Reason: Keep Vein Open Last Admin: 08/28/19 01:32 Dose: 20 ml Labs: Laboratory Tests 08/27/19 08/27/19 08/27/19 Range/Units 23:15 23:30 23:30 WBC 7.76 (3.98-10.04) K/mm3 RBC 4.34 (3.98-5.22) M/mm3 Hgb 12.6 (11.2-15.7) gm/dl Hct 37.4 (34.1-44.9) % MCV 86.2 (79.4-94.8) fl MCH 29.0 (25.6-32.2) pg MCHC 33.7 (32.2-35.5) g/dl RDW Std Deviation 47.2 H (36.4-46.3) fL Plt Count 208 (182-369) K/mm3 MPV 11.3 (9.4-12.3) fl Neutrophils % (Manual) 53 (40-60) % Band Neutrophils % 0 (0-10) % Lymphocytes % (Manual) 36 (20-40) % Atypical Lymphs % 0 % Monocytes % (Manual) 6 (2-10) % Eosinophils % (Manual) 5 (0.7-5.8) % Basophils % (Manual) 0 L (0.1-1.2) Platelet Estimate Adequate RBC Morph Comment Normal Sodium 140 (136-145) mEq/L Potassium 3.5 (3.5-5.1) mEq/L Chloride 104 (98-107) mEq/L Carbon Dioxide 25 (21-32) mEq/L Anion Gap 14.5 (5-15) BUN 16 (7-18) mg/dL Creatinine 0.8 (0.55-1.02) mg/dL Est Cr Clr Drug Dosing 51.03 mL/min Estimated GFR (MDRD) > 60 (>60) mL/min BUN/Creatinine Ratio 20.0 H (14-18) Glucose 112 (80-115) mg/dL Calcium 9.4 (8.5-10.1) mg/dL Total Bilirubin 0.2 (0.2-1.0) mg/dL AST 21 (15-37) U/L ALT 24 (14-59) U/L Alkaline Phosphatase 68 (46-116) U/L Total Protein 7.7 (6.4-8.2) g/dl Albumin 3.9 (3.4-5.0) g/dl Globulin 3.8 gm/dL Albumin/Globulin Ratio 1.0 (1-2) Urine Color Yellow (Yellow) Urine Appearance Slt cloudy H (Clear) Urine pH 6.5 (5.0-8.0) Ur Specific [place] 1.010 (1.005-1.030) Urine Protein Negative (Negative) Urine Glucose (UA) Negative (Negative) Urine Ketones Negative (Negative) Urine Occult Blood Negative (Negative) Urine Nitrite Negative (Negative) Urine Bilirubin Negative (Negative) Urine Urobilinogen 0.2 (0.2-1.0) Ur Leukocyte Esterase 1+ H (Negative) Urine RBC 0-5 (0-5) /hpf Urine WBC 0-5 (0-5) /hpf Ur Squamous Epith Cells 0-5 (0-5) /hpf Urine Bacteria Few (FEW) /hpf Urine Mucus Not seen (FEW) /hpf Meds: Medications Generic Name Dose Route Start Last Admin Trade Name Freq PRN Reason Stop Dose Admin Sodium Chloride 1,000 mls @ 150 mls/hr 08/27/19 23:30 08/27/19 23:34 Normal Saline IV 150 mls/hr ASDIRECTED NATHAN Administration Sodium Chloride 20 ml 08/28/19 00:40 08/28/19 01:32 Saline Flush FLUSH 20 ml ONETIME PRN Administration Keep Vein Open Discontinued Medications Generic Name Dose Route Start Last Admin Trade Name Freq PRN Reason Stop Dose Admin Diatrizoate Meglum/Diatrizoate Sod 120 ml 08/28/19 00:39 08/28/19 01:31 Gastrografin 37% PO 08/28/19 00:40 120 ml ONETIME ONE Administration Iopamidol 100 ml 08/28/19 00:39 08/28/19 01:32 Isovue-300 (61%) IVPUSH 08/28/19 00:40 100 ml ONETIME ONE Administration Ondansetron HCl 4 mg 08/27/19 23:27 08/27/19 23:34 Zofran IVPUSH 08/27/19 23:28 4 mg ONETIME ONE Administration - Re-Assessments/Exams Free Text/Narrative Re-Assessment/Exam: 08/27/19 23:32 The etiology of the patient's lower abdominal pain and tenderness is not immediately clear. Diverticulitis or appendicitis is possible, but unlikely, given its two-week course. Similarly, a UTI is on the differential but unlikely. Similarly, a ureterolith is a possibility. I have ordered a workup that includes blood work, a urinalysis, and a CT scan of her abdomen and pelvis with oral and IV contrast. In the meantime, the patient will be treated with IV Zofran and IV fluid. She is not requesting pain medication at this time. The patient initially stated that she is allergic to IV contrast, that she had a bad reaction a few years ago when she had a CT scan, here. I checked, and the patient has only had a single CT of her abdomen and pelvis, without contrast, in 2018. Our records show no prior CT of anything with iodinated contrast. She has, however, undergone an MRI and several cardiac stress tests. When I discussed this with the patient, she believes it was the MRI contrast that she had the reaction to. 08/28/19 01:33 The patient's CBC is unremarkable. Her CMP is unremarkable. Her urinalysis is unremarkable. CT of the abdomen and pelvis with oral and IV contrast is read by vRricki as "No acute findings." 08/28/19 02:00 Test results discussed with the patient and her . As above, today's workup is entirely unremarkable, and does not explain the cause of her symptoms , however, no emergency condition appears to be present. I believe the patient can safely be discharged home. If her symptoms persist, I would like her to follow-up with her PCP. The patient agreed. I offered to prescribe some Zofran, but she declined. I would like her to stay adequately hydrated. Departure - Departure Time of Disposition: 02:01 Disposition: Home, Self-Care 01 Condition: Good Clinical Impression: Lower abdominal pain of unknown etiology - Discharge Information *PRESCRIPTION DRUG MONITORING PROGRAM REVIEWED*: Not Applicable *COPY OF PRESCRIPTION DRUG MONITORING REPORT IN PATIENT ANANYA: Not Applicable Referrals: Franklin Keita MD [Primary Care Provider] - Darren Singh MD [Physician] - Artem South MD [Consulting Physician] - Lionel Centeno MD [Ordering Only Provider] - Forms: ED Department Discharge Additional Instructions: You were seen in the emergency room for lower abdominal cramps for 2 weeks and nausea today. Workup in the ER included blood work, a urinalysis, and a CT scan of your abdomen and pelvis with oral and IV contrast. Your entire workup was unremarkable, and does not explain the cause of your symptoms. We recommend that you stay adequately hydrated. You may take [id number] Tylenol or ibuprofen as needed for discomfort. If you are still symptomatic by 08/30/2019, we recommend that you follow- up with your PCP, Dr. Franklin Keita, for further evaluation. If any other problems, please do not hesitate to return to the ER. - My Orders Last 24 Hours: My Active Orders 08/27/19 23:30 Sodium Chloride 0.9% [Normal Saline] 1,000 ml IV ASDIRECTED 08/28/19 00:01 Abdomen Pelvis w Cont [CT] Stat 08/28/19 00:40 Sodium Chloride 0.9% [Saline Flush] 20 ml FLUSH ONETIME PRN - Assessment/Plan Last 24 Hours: My Active Orders 08/27/19 23:30 Sodium Chloride 0.9% [Normal Saline] 1,000 ml IV ASDIRECTED 08/28/19 00:01 Abdomen Pelvis w Cont [CT] Stat 08/28/19 00:40 Sodium Chloride 0.9% [Saline Flush] 20 ml FLUSH ONETIME PRN
[2019-08-28] MEDS ORDERED: Iopamidol 612 MG/ML 100 ML Bottle IVPUSH ONE (00:39)
[2019-08-28] MEDS ORDERED: Diatrizoate Meglumine/Diatrizoate Sodium 37% 120 ML Bottle PO ONE (00:39)
[2019-08-28] MEDS ORDERED: Sodium Chloride 0.9% 10 ML Syringe FLUSH PRN (00:40)
--- NOTE | 2019-08-30 09:12 | CT ---
CT abdomen and pelvis Technique: Multiple axial sections were obtained from above the dome of the diaphragm inferiorly through the pubic symphysis. Intravenous and oral contrast has been given. Comparison: Previous CT abdomen and pelvis exam of 10/01/17. Findings: Visualized lung bases show nothing acute. Liver contains no focal abnormality. Spleen appears within normal limits. Pancreas appears within normal limits. Gallbladder contains no calcified gallstones. Adrenal glands show no nodule. Aorta shows diffuse atherosclerotic calcification which continues into the iliac vessels. Kidneys show symmetric contrast enhancement without hydronephrosis or mass. No retroperitoneal adenopathy is seen. No pelvic mass or adenopathy is identified. Appendix not visualized with certainty. No free fluid or inflammatory change is seen. Delayed images shows contrast within the distal ureters and within the bladder. Bone window settings were reviewed which show mild degenerative change within the lower apophyseal joints. No acute osseous finding is appreciated. Impression: 1. Findings as noted above. 2. Nothing acute is appreciated on CT study of the abdomen and pelvis. Diagnostic code #2 This report was dictated in [place] Standard Time I agree with preliminary report issued by [facility] ([facility] report finalized on 08/28/19, 2:29 AM Central Time)
== END 2019-08-28 02:08 | disposition home or self-care (01) ==
LOC: JD.ED 23:03
DX: R10.30 Lower abdominal pain, unspecified (principal); E78.5 Hyperlipidemia, unspecified; E03.9 Hypothyroidism, unspecified; Z91.09 Other allergy status, other than to drugs and biological substances; Z88.6 Allergy status to analgesic agent; Z88.1 Allergy status to other antibiotic agents; Z91.040 Latex allergy status; Z79.890 Hormone replacement therapy; Z79.899 Other long term (current) drug therapy
CPT/HCPCS: 36415; 74177; 80053; 81001; 85007; 85027; 96361; 96374; 99284; J2405; J7040; Q9963; Q9967; 99283; J7030

== ENCOUNTER 2020-05-16 19:23 | Emergency (ER) | payer BC, MEDICARE ==
[2020-05-16 19:39] VITALS: BP 170/87; PULSE 76
--- NOTE | 2020-05-16 20:27 | EDM.PDOC ---
ED HPI GENERAL MEDICAL PROBLEM - General Chief Complaint: Allergic Reaction Stated Complaint: sore throat Time Seen by Provider: 05/16/20 20:04 Source of Information: Reports: Patient History Limitations: Reports: No Limitations - History of Present Illness INITIAL COMMENTS - FREE TEXT/NARRATIVE: Mrs. Root is a very pleasant 64-year-old woman with a past medical history significant for untreated anxiety and an extensive list of allergies to medications, who now presents the ED stating that she believes that she is suffering an allergic reaction to 1 of the medications that she is taking to treat H. pylori. She states that she did not have any gastrointestinal symptoms, however, a stool antigen for H. pylori a was performed in March, for reasons unclear, which return ed positive. She was subsequently sent to Dr. Bravo, a personal injury specialist in [place], who had her desensitized to at least one medication. She subsequently began amoxicillin 500 mg po BID, clarithromycin 500 mg po BID, and pantoprazole 40 mg po QAM this past , 05/11/2020. She then developed the sensation of swelling to the back of her throat and tongue 2 or 3 days ago. No other symptoms of an allergic reaction, such as lip swelling, pruritus or urticaria, dyspnea, or wheezing. The patient is not certain who, specifically, prescribed the medications. Here in the ED, the patient's initial BP is found to be elevated at 170/87, otherwise, she is hemodynamically stable, afebrile, saturating 98% on room air. Other than the sensation of throat and tongue swelling, the patient denies having a recent fever, chills, sore throat, ear pain, nasal or sinus congestion, cough, dyspnea, chest pain, palpitations, nausea, vomiting, constipation, diarrhea, abdominal pain, urinary symptoms, recent weight gain or weight loss, recent bloody bowel movements or black bowel movements, recent joint aches, headaches, or rashes. The patient's PCP is Dr. Franklin Keita. Her General Surgeon is Dr. Wen. Her Orthopedic Surgeon is Dr. Artem bates. Her Is Consultant is Dr. Lionel Centeno. - Related Data Allergies Allergy/AdvReac Type Severity Reaction Status Date / Time acetaminophen [From Endocet] Allergy Severe Cannot Verified 05/16/20 19:41 Remember adhesive Allergy Severe Rash Verified 05/16/20 19:41 cetirizine HCl [From Zyrtec] Allergy Severe Rash Verified 05/16/20 19:41 clarithromycin [From Biaxin] Allergy Severe Rash Verified 05/16/20 19:41 clobetasol Allergy Severe Cannot Verified 05/16/20 19:41 Remember clotrimazole Allergy Severe Rash Verified 05/16/20 19:41 doxycycline Allergy Severe Rash Verified 05/16/20 19:41 ezetimibe [From Zetia] Allergy Severe Rash Verified 05/16/20 19:41 gluten Allergy Severe Swelling Verified 05/16/20 19:41 indomethacin Allergy Severe Cannot Verified 05/16/20 19:41 Remember iodine Allergy Severe Cannot Verified 05/16/20 19:41 Remember latex Allergy Severe Rash Verified 05/16/20 19:41 levofloxacin Allergy Severe Rash Verified 05/16/20 19:41 licorice Allergy Severe Rash Verified 05/16/20 19:41 loratadine [From Claritin] Allergy Severe Rash Verified 05/16/20 19:41 monosodium glutamate Allergy Severe Hives Verified 05/16/20 19:41 omeprazole Allergy Severe Rash Verified 05/16/20 19:41 oxycodone HCl [From Endocet] Allergy Severe Cannot Verified 05/16/20 19:41 Remember pravastatin Allergy Severe Cannot Verified 05/16/20 19:41 Remember prednisone Allergy Severe Hives Verified 05/16/20 19:41 red dye Allergy Severe Swelling Verified 05/16/20 19:41 rosuvastatin [From Crestor] Allergy Severe Rash Verified 05/16/20 19:41 zolpidem tartrate Allergy Severe Swelling Verified 05/16/20 19:41 [From Ambien] cefdinir AdvReac Severe Vomiting Verified 05/16/20 19:41 famotidine [From Pepcid] AdvReac Severe Stomach Verified 05/16/20 19:41 Upset benzidine Allergy Severe Cannot Uncoded 05/16/20 19:41 Remember bromochlorosalicylanilide Allergy Severe Cannot Uncoded 05/16/20 19:41 Remember Home Meds: Home Meds Levothyroxine [Synthroid] 100 mcg PO ASDIRECTED 04/05/16 [History] Evolocumab [Repatha Syringe] 1 dose IM ASDIRECTED 08/27/19 [History] Past Medical History HEENT History: Reports: Impaired Vision (wears glasses) Cardiovascular History: Reports: High Cholesterol Gastrointestinal History: Reports: 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 (x 1x 1) : 7 Para: 6 Neurological History: Reports: TIA (possible) Psychiatric History: Reports: Anxiety (untreated) Endocrine/Metabolic History: Reports: Hypothyroidism (following thyroidectomy for pre-cancerous nodule) - Infectious Disease History Infectious Disease History: Reports: Chicken Pox - Past Surgical History GI Surgical History: Reports: Colonoscopy (x 6), EGD (x 5), Hernia, Abdominal (x 2) Female Surgical History: Reports: Section (x 1), Hysterectomy (complete) Endocrine Surgical History: Reports: Thyroidectomy (complete) Musculoskeletal Surgical History: Reports: Shoulder Surgery (right, arthroscopic), Other (See Below) (Right wrist connective tissue repair) Dermatological Surgical History: Reports: Skin Biopsy (from back - benign), Other (See Below) (Lipomas excised off back) Social & Family History - Family History Family Medical History: Noncontributory - Tobacco Use Smoking Status *Q: Never Smoker - Caffeine Use Caffeine Use: Reports: Coffee, Soda - Alcohol Use Alcohol Use History: No - Recreational Drug Use Recreational Drug Use: No - Living Situation & Occupation Living situation: Reports: , with Spouse Occupation: Retired ED ROS ALLERGIC REACTION - Review of Systems Review Of Systems: Comprehensive ROS is negative, except as noted in HPI. ED EXAM GENERAL NO PERIP PULSE - Physical Exam Exam: See Below Exam Limited By: No Limitations General Appearance: Alert, WD/WN, No Apparent Distress Eye Exam: Bilateral Eye: EOMI, Normal Inspection Ears: Normal External Exam, Normal Canal, Hearing Grossly Normal, Normal TMs Nose: Normal Inspection, Normal Mucosa, No Blood Throat/Mouth: Normal Inspection, Normal Lips, Normal Teeth, Normal Gums, Normal Oropharynx (no uvular, posterior oropharyngeal, or tongue swelling), Normal Voice, No Airway Compromise Head: Atraumatic, Normocephalic Neck: Normal Inspection, Supple, Non-Tender, Full Range of Motion. No: Lymphadenopathy (L), Lymphadenopathy (R) Respiratory/Chest: No Respiratory Distress, Lungs Clear, Normal Breath Sounds, No Accessory Muscle Use. No: Decreased Breath Sounds, Crackles, Rhonchi, Wheezing, Stridor, Prolonged Expiration Cardiovascular: Normal Peripheral Pulses, Regular Rate, Rhythm, No Edema, No Gallop, No JVD, No Murmur, No Rub GI/Abdominal: Normal Bowel Sounds, Soft, Non-Tender, No Organomegaly, No Distention, No Abnormal Bruit, No Mass (Female) Exam: Deferred Rectal (Female) Exam: Deferred Back Exam: Normal Inspection, Full Range of Motion, NT Extremities: Normal Inspection, Normal Range of Motion, No Pedal Edema, Normal Capillary Refill Neurological: Alert, Oriented, Normal Cognition, No Motor/Sensory Deficits Psychiatric: Normal Affect Skin Exam: Warm, Dry, Intact, Normal Color, No Rash Course - Vital Signs Last Recorded V/S: Last Vital Signs Temp 36.8 C 05/16/20 19:35 Pulse 76 05/16/20 19:35 Resp 20 05/16/20 19:35 BP 170/87 H 05/16/20 19:35 Pulse Ox 98 05/16/20 19:35 - Re-Assessments/Exams Free Text/Narrative Re-Assessment/Exam: 05/16/20 20:25 As above, the patient has been on amoxicillin, clarithromycin, and pantoprazole since 05/11/2020, for treatment of H. pylori, however, while I have no doubt that the patient's stool antigen for H. pylori was positive, I do not see why she was tested for H. pylori, as the patient has no history of peptic ulcer disease, gastric cancer, anemia, or thrombocytopenia. Nevertheless, while the patient states that she feels like the back of her throat and tongue are swollen, I see no evidence of that on physical exam. Her uvula, for example, is completely normal in appearance with no edema. Rather than tell the patient to stop taking the antibiotics and pantoprazole, I would prefer that she talk to her prescribing physician, to see if they would still want her to complete the therapy. Departure - Departure Time of Disposition: 20:30 Disposition: Home, Self-Care 01 Condition: Good Clinical Impression: Sensation of swollen throat - Discharge Information *PRESCRIPTION DRUG MONITORING PROGRAM REVIEWED*: Not Applicable *COPY OF PRESCRIPTION DRUG MONITORING REPORT IN PATIENT ANANYA: Not Applicable Referrals: Franklin Keita MD [Primary Care Provider] - Lionel Centeno MD [Ordering Only Provider] - Artem South MD [Ordering Only Provider] - Ilda Wen MD [Physician] - Forms: ED Department Discharge Additional Instructions: You were seen in the emergency room for 2 to 3 days of feeling like the back of your throat and tongue were swollen, after starting on amoxicillin, clarithromycin, and pantoprazole, for treatment of H. pylori. On examination, there was no suggestion of an allergic reaction. No throat or tongue swelling was seen. As discussed, the indications for testing for H. pylori include a history of peptic ulcer disease, gastric cancer, anemia, or thrombocytopenia (low platelets), and since you have none of these, it is not entirely clear why you were tested for H. pylori. It is true that if H. pylori is found, current guidelines recommend treatment, however, that is presuming that there was a medical indication for testing for it. Going forward, we recommend that you talk to your prescribing physician, to see if they still want you to complete the medication course, given your symptoms. If any other problems, please do not hesitate to return to the ER. Sepsis Event Note (ED) - Evaluation Sepsis Screening Result: No Definite Risk - Focused Exam Vital Signs: Vital Signs Temp Pulse Resp BP Pulse Ox 05/16/20 19:35 36.8 C 76 20 170/87 H 98
== END 2020-05-16 20:50 | disposition home or self-care (01) ==
LOC: JD.ED 19:23
DX: R07.0 Pain in throat (principal); E78.00 Pure hypercholesterolemia, unspecified; E03.9 Hypothyroidism, unspecified; Z88.6 Allergy status to analgesic agent; Z88.8 Allergy status to other drugs, medicaments and biological substances; Z88.1 Allergy status to other antibiotic agents; Z88.3 Allergy status to other anti-infective agents; Z91.041 Radiographic dye allergy status; Z91.040 Latex allergy status; Z91.018 Allergy to other foods; Z86.73 Personal history of transient ischemic attack (TIA), and cerebral infarction without residual deficits
CPT/HCPCS: 99282; 99283

== ENCOUNTER 2021-06-29 21:26 | Emergency (ER) | payer MEDICARE, BC ==
[2021-06-29 22:53] VITALS: PULSE 70
--- NOTE | 2021-06-30 00:29 | EDM.PDOC ---
ED HPI GENERAL MEDICAL PROBLEM - General Chief Complaint: Chest Pain Stated Complaint: CHEST PAIN/HURTS TO BREATHE Time Seen by Provider: 06/30/21 00:11 Source of Information: Reports: Patient, Family () History Limitations: Reports: No Limitations - History of Present Illness INITIAL COMMENTS - FREE TEXT/NARRATIVE: Mrs. Root is a very pleasant 65-year-old woman who now presents the ED stating that she has had a slight nonproductive cough for about 10 days, then developed upper left chest tightness, a pain, made worse with movement or deep breaths, today. No associated dyspnea, nausea, diaphoresis, or sense of impending doom. No prior similar symptoms. The patient states that she took 3 aspirins today, without much improvement in her symptoms. Here in the ED, the patient's initial BP is found to be elevated at 173/86, otherwise, she is hemodynamically stable, afebrile, saturating 97% on room air. She appears to be comfortable, in no acute distress. The patient denies having a recent fever, chills, sore throat, ear pain, nasal or sinus congestion, dyspnea, palpitations, nausea, vomiting, constipation, diarrhea, abdominal pain, urinary symptoms, recent weight gain or weight loss, recent bloody bowel movements or black bowel movements, recent joint aches, headaches, or rashes. The patient's PCP is Dr. Franklin Keita. Her General Surgeon is Dr. Wen. Her Orthopedic Surgeon is Dr. Artem South. Her Medical Physics Professor is Dr. Lionel Centeno. Left Chest Pain Score (Numeric/FACES): 8 - Related Data Allergies Allergy/AdvReac Type Severity Reaction Status Date / Time acetaminophen [From Endocet] Allergy Severe Cannot Verified 05/16/20 19:41 Remember adhesive Allergy Severe Rash Verified 05/16/20 19:41 cetirizine HCl [From Zyrtec] Allergy Severe Rash Verified 05/16/20 19:41 clarithromycin [From Biaxin] Allergy Severe Rash Verified 05/16/20 19:41 clobetasol Allergy Severe Cannot Verified 05/16/20 19:41 Remember clotrimazole Allergy Severe Rash Verified 05/16/20 19:41 doxycycline Allergy Severe Rash Verified 05/16/20 19:41 ezetimibe [From Zetia] Allergy Severe Rash Verified 05/16/20 19:41 gluten Allergy Intermediate Swelling Verified 10/31/20 11:32 latex Allergy Intermediate Rash Verified 10/31/20 11:32 levofloxacin Allergy Intermediate Rash Verified 10/31/20 11:32 licorice Allergy Intermediate Rash Verified 10/31/20 11:32 loratadine [From Claritin] Allergy Intermediate Rash Verified 10/31/20 11:32 monosodium glutamate Allergy Intermediate Hives Verified 10/31/20 11:32 omeprazole Allergy Intermediate Rash Verified 10/31/20 11:32 prednisone Allergy Intermediate Hives Verified 10/31/20 11:32 red dye Allergy Intermediate Swelling Verified 10/31/20 11:32 rosuvastatin [From Crestor] Allergy Intermediate Rash Verified 10/31/20 11:32 zolpidem tartrate Allergy Intermediate Swelling Verified 10/31/20 11:32 [From Ambien] indomethacin Allergy Unknown Cannot Verified 10/31/20 11:32 Remember iodine Allergy Unknown Cannot Verified 10/31/20 11:32 Remember oxycodone HCl [From Endocet] Allergy Unknown Cannot Verified 10/31/20 11:32 Remember pravastatin Allergy Unknown Cannot Verified 10/31/20 11:32 Remember cefdinir AdvReac Mild Vomiting Verified 10/31/20 11:32 famotidine [From Pepcid] AdvReac Mild Stomach Verified 10/31/20 11:32 Upset benzidine Allergy Unknown Cannot Uncoded 10/31/20 11:32 Remember bromochlorosalicylanilide Allergy Unknown Cannot Uncoded 10/31/20 11:32 Remember Home Meds: Home Meds Levothyroxine [Synthroid] 100 mcg PO ASDIRECTED 04/05/16 [History] Evolocumab [Repatha Syringe] 1 dose IM ASDIRECTED 08/27/19 [History] Past Medical History HEENT History: Reports: Impaired Vision (wears glasses) Cardiovascular History: Reports: High Cholesterol Gastrointestinal History: Reports: Colon Polyp THREAD SINGER History: Reports: Spontaneous (x 1) Neurological History: Reports: TIA (possible) Psychiatric History: Reports: Anxiety (untreated) Endocrine/Metabolic History: Reports: Hypothyroidism (following thyroidectomy for pre-cancerous nodule) - Infectious Disease History Infectious Disease History: Reports: Chicken Pox - Past Surgical History GI Surgical History: Reports: Colonoscopy (x 6), EGD (x 5), Hernia, Abdominal (x 2) Female Surgical History: Reports: Section (x 1), Hysterectomy (complete) Endocrine Surgical History: Reports: Thyroidectomy (complete) Musculoskeletal Surgical History: Reports: Shoulder Surgery (right, arth roscopic), Other (See Below) (Right wrist connective tissue repair) Dermatological Surgical History: Reports: Skin Biopsy (from back - benign), Other (See Below) (Lipomas excised off back) Social & Family History - Tobacco Use Tobacco Use Status *Q: Never Tobacco User - Caffeine Use Caffeine Use: Reports: Coffee, Soda - Alcohol Use Alcohol Use History: No - Recreational Drug Use Recreational Drug Use: No - Living Situation & Occupation Living situation: Reports: , with Spouse Occupation: Retired ED ROS GENERAL - Review of Systems Review Of Systems: Comprehensive ROS is negative, except as noted in HPI. ED EXAM, GENERAL - Physical Exam Exam: See Below Exam Limited By: No Limitations General Appearance: Alert, WD/WN, No Apparent Distress Eye Exam: Bilateral Eye: EOMI, Normal Inspection Ears: Normal External Exam, Hearing Grossly Normal Nose: Normal Inspection Throat/Mouth: Normal Inspection, Normal Lips, Normal Voice, No Airway Compromise Head: Atraumatic, Normocephalic Neck: Normal Inspection, Full Range of Motion Respiratory/Chest: No Respiratory Distress, Lungs Clear, Normal Breath Sounds, No Accessory Muscle Use, Other (Reproducible tenderness to palpation of the upper left chest. No visible abnormality at that site, such as swelling, erythema, ecchymosis, or abrasion.). No: Decreased Breath Sounds, Crackles, Rhonchi, Wheezing, Stridor, Pleural Rub, Prolonged Expiration Cardiovascular: Normal Peripheral Pulses, Regular Rate, Rhythm, No Edema, No Gallop, No JVD, No Murmur, No Rub Peripheral Pulses: 3+: Radial (L), Radial (R) GI/Abdominal: Normal Bowel Sounds, Soft, Non-Tender, No Organomegaly, No Distention, No Abnormal Bruit, No Mass Back Exam: Normal Inspection, Full Range of Motion, NT Extremities: Normal Inspection, Normal Range of Motion, No Pedal Edema, Normal Capillary Refill Neurological: Alert, Oriented, Normal Cognition, No Motor/Sensory Deficits Psychiatric: Normal Affect Skin Exam: Warm, Dry, Intact, Normal Color, No Rash #1 Interpretation EKG Date: 06/29/21 Time: 22:56 Rhythm: NSR Rate (Beats/Min): 72 [place]: LAD-Left [place] Deviation P-Wave: Present QRS: Other (Poor R-wave progression) ST-T: Normal QT: Normal Comparison: No Change (12/26/2018) Course - Vital Signs Last Recorded V/S: Last Vital Signs Temp 36.1 C 06/29/21 22:50 Pulse 70 06/29/21 22:50 Resp 19 06/30/21 00:50 BP 147/72 H 06/30/21 00:50 Pulse Ox 98 06/30/21 00:50 - Orders/Labs/Meds Orders: Active Orders 24 hr Category Date Time Status Chest 2V [CR] Stat Exams 06/29/21 23:56 Taken EKG 12 Lead [EK] Stat Ther 06/29/21 23:32 Ordered Labs: Laboratory Tests 06/29/21 06/29/21 Range/Units 23:10 23:10 WBC 6.51 (3.98-10.04) K/mm3 RBC 4.71 (3.98-5.22) M/mm3 Hgb 12.3 (11.2-15.7) gm/dl Hct 41.2 (34.1-44.9) % MCV 87.5 (79.4-94.8) fl MCH 26.1 (25.6-32.2) pg MCHC 29.9 L (32.2-35.5) g/dl RDW Std Deviation 48.3 H (36.4-46.3) fL Plt Count 229 (182-369) K/mm3 MPV 11.6 (9.4-12.3) fl Neut % (Auto) 51.2 (34.0-71.1) % Lymph % (Auto) 35.8 (19.3-51.7) % [place] % (Auto) 9.7 (4.7-12.5) % Eos % (Auto) 2.6 (0.7-5.8) Baso % (Auto) 0.5 (0.1-1.2) % Neut # (Auto) 3.34 (1.56-6.13) K/mm3 Lymph # (Auto) 2.33 (1.18-3.74) K/mm3 [place] # (Auto) 0.63 H (0.24-0.36) K/mm3 Eos # (Auto) 0.17 (0.04-0.36) K/mm3 Baso # (Auto) 0.03 (0.01-0.08) K/mm3 Sodium 137 (136-145) mEq/L Potassium 3.5 (3.5-5.1) mEq/L Chloride 103 (98-107) mEq/L Carbon Dioxide 28 (21-32) mEq/L Anion Gap 9.5 (5-15) BUN 20 H (7-18) mg/dL Creatinine 0.6 (0.55-1.02) mg/dL Est Cr Clr Drug Dosing 66.25 mL/min Estimated GFR (MDRD) > 60 (>60) mL/min BUN/Creatinine Ratio 33.3 H (14-18) Glucose 113 H (70-99) mg/dL Calcium 9.2 (8.5-10.1) mg/dL Troponin I < 0.017 (0.00-0.056) ng/mL - Re-Assessments/Exams Free Text/Narrative Re-Assessment/Exam: 06/30/21 00:25 A CBC, BMP, troponin, chest x-ray, and ECG were ordered at triage. The ECG shows no ischemic changes. Two-view chest radiograph appears to be grossly normal. The cardiac silhouette is within normal limits. No pulmonary vascular congestion. No pleural effusions. No focal infiltrate. No pneumothorax. There is thoracolumbar scoliosis. A right shoulder arthroscopic anchor is noted. Formal read per the Radiologist pending. The patient's CBC is unremarkable. Her BMP is remarkable for slight hyperglycemia of 113, and is otherwise unremarkable. Her troponin is undetectably low. 06/30/21 00:31 Test results discussed with the patient and her . It appears that the patient's pain is musculoskeletal in etiology, most likely due to a spasm of some upper left intercostal muscles caused by her cough. I offered to start the patient on Norflex, but she prefers no medications. I suggested she take [id number] Tylenol or ibuprofen if needed. She is agreeable. Departure - Departure Time of Disposition: 00:33 Disposition: Home, Self-Care 01 Condition: Good Clinical Impression: Intercostal muscle pain - Discharge Information *PRESCRIPTION DRUG MONITORING PROGRAM REVIEWED*: Not Applicable *COPY OF PRESCRIPTION DRUG MONITORING REPORT IN PATIENT ANANYA: Not Applicable Instructions: Nonspecific Chest Pain, Adult, [id number], Musculoskeletal Pain Referrals: Franklin Keita MD [Primary Care Provider] - Ilda Wen MD [Physician] - Artem South MD [Ordering Only Provider] - Lionel Centeno MD [Ordering Only Provider] - Forms: ED Department Discharge Additional Instructions: You were seen in the emergency room after experiencing a slight dry cough for about 10 days, then left-sided chest pain today. Work-up in the ER included several blood tests, a chest x-ray, and an ECG. Your entire work-up was unremarkable. You have not suffered a heart attack. You do not have pneumonia. You do not have a collapsed lung. Based on your history, physical exam, and ER tests, the cause of your pain is most likely due to a spasm of some intercostal muscles in your upper left chest. Starting you on a muscle relaxant was offered, but declined. You may take [id number] Tylenol or ibuprofen as needed for discomfort. If any other problems, please do not hesitate to return to the ER. Sepsis Event Note (ED) - Evaluation Sepsis Screening Result: No Definite Risk - Focused Exam Vital Signs: Vital Signs Temp Pulse Resp BP Pulse Ox 06/30/21 00:50 19 147/72 H 98 06/29/21 22:50 36.1 C 70 18 173/86 H 97 - My Orders Last 24 Hours: My Active Orders 06/29/21 23:32 EKG 12 Lead [EK] Stat 06/29/21 23:56 Chest 2V [CR] Stat - Assessment/Plan Last 24 Hours: My Active Orders 06/29/21 23:32 EKG 12 Lead [EK] Stat 06/29/21 23:56 Chest 2V [CR] Stat
[2021-06-30 00:56] VITALS: BP 147/72
--- NOTE | 2021-06-30 07:09 | CR ---
Chest: PA and lateral views of the chest were obtained. Comparison: Prior chest x-ray of 12/26/18. Heart is slightly enlarged. Upper mediastinum is within normal limits. Slight parenchymal density is seen next to the left side of the heart presumably due to atelectasis. Lungs otherwise are clear. Slight scoliosis is noted within the spine. Prior right shoulder surgery is noted. Impression: 1. Mild cardiomegaly. Presumed mild atelectasis within the left base. 2. Nothing acute is otherwise seen. Diagnostic code #2
== END 2021-06-30 00:50 | disposition home or self-care (01) ==
LOC: JD.ED 21:26
DX: R07.82 Intercostal pain (principal); E03.9 Hypothyroidism, unspecified; Z88.6 Allergy status to analgesic agent; Z91.048 Other nonmedicinal substance allergy status; Z88.1 Allergy status to other antibiotic agents; Z88.8 Allergy status to other drugs, medicaments and biological substances; Z91.018 Allergy to other foods; Z91.040 Latex allergy status; Z88.5 Allergy status to narcotic agent; Z79.899 Other long term (current) drug therapy
CPT/HCPCS: 36415; 71046; 71046-26; 80048; 84484; 85025; 93005; 99285-25

== ENCOUNTER 2022-01-03 20:34 | Emergency (ER) | payer MEDICARE, BC ==
[2022-01-03 20:53] VITALS: BP 179/86; PULSE 91
== END 2022-01-03 23:31 | disposition home or self-care (01) ==
LOC: JD.ED 20:34
DX: J06.9 Acute upper respiratory infection, unspecified (principal); E78.00 Pure hypercholesterolemia, unspecified; E03.9 Hypothyroidism, unspecified; E66.9 Obesity, unspecified; Z68.31 Body mass index [BMI] 31.0-31.9, adult; Z86.73 Personal history of transient ischemic attack (TIA), and cerebral infarction without residual deficits; Z91.048 Other nonmedicinal substance allergy status; Z88.1 Allergy status to other antibiotic agents; Z91.040 Latex allergy status; Z91.018 Allergy to other foods; Z91.041 Radiographic dye allergy status; Z88.5 Allergy status to narcotic agent
CPT/HCPCS: 36415; 71046; 71046-26; 80053; 85007; 85027; 86140; 87651-QW; 99283; 99283-25

== ENCOUNTER 2023-04-11 23:36 | Emergency (ER) | payer MEDICARE, BC ==
[2023-04-12] MEDS ORDERED: Sodium Chloride 0.9% 10 ML Syringe FLUSH PRN (00:13)
[2023-04-12] MEDS ORDERED: Ondansetron 4 MG/2 ML SDV IVPUSH ONE (00:13)
[2023-04-12] MEDS ORDERED: HYDROmorphone 0.5 MG/0.5 ML Syringe IVPUSH ONE (00:15)
[2023-04-12] MEDS ORDERED: Sodium Chloride 0.9% 1,000 ML IV SCH (00:15)
[2023-04-12 00:32] LABS: APPEARANCE,URINE CLEAR (Clear); BILIRUBIN,URINE NEGATIVE (Negative); COLOR,URINE LIGHT YELLOW (Yellow); GLUCOSE,URINE NEGATIVE (Negative); KETONES,URINE NEGATIVE (Negative); LEUKOCYTE ESTERASE,URINE 1+ (Negative); NITRITE,URINE NEGATIVE (Negative); OCCULT BLOOD,URINE 2+ (Negative); PROTEIN,URINE NEGATIVE (Negative); UROBILINOGEN,URINE 0.2 (0.2-1.0)
[2023-04-12 00:54] LABS: WBC CLUMPS,URINE OCCASIONAL /hpf (NOT SEEN)
[2023-04-12 00:55] LABS: BASOPHILS ABSOLUTE AUTO 0.04 K/mm3 (0.01-0.08); BASOPHILS PERCENT AUTO 0.5 % (0.1-1.2); EOSINOPHILS ABSOLUTE AUTO 0.18 K/mm3 (0.04-0.36); EOSINOPHILS PERCENT AUTO 2.4 (0.7-5.8); HEMATOCRIT 33.7 % (34.1-44.9); HEMOGLOBIN 10.8 gm/dl (11.2-15.7); IMMATURE GRAN ABSOLUTE AUTO 0.02 K/mm3 (0.00-0.10); IMMATURE GRAN PERCENT AUTO 0.3 % (<=1.0); LYMPHOCYTES ABSOLUTE AUTO 2.23 K/mm3 (1.18-3.74); LYMPHOCYTES PERCENT AUTO 29.3 % (19.3-51.7); MEAN CORPUSCULAR HEMOGLOBIN 28.6 pg (25.6-32.2); MEAN CORPUSCULAR VOLUME 89.2 fl (79.4-94.8); MEAN PLATELET VOLUME 10.9 fl (9.4-12.3); MONOCYTES ABSOLUTE AUTO 0.62 K/mm3 (0.24-0.36); MONOCYTES PERCENT AUTO 8.2 % (4.7-12.5); NEUTROPHILS ABSOLUTE AUTO 4.51 K/mm3 (1.56-6.13); NEUTROPHILS PERCENT AUTO 59.3 % (34.0-71.1); PLATELET COUNT,PLT 272 K/mm3 (182-369); RED BLOOD CELL COUNT 3.78 M/mm3 (3.98-5.22)
[2023-04-12 00:55] LABS: BACTERIA,URINE FEW /hpf (FEW); MUCUS,URINE NOT SEEN /hpf (FEW); SQUAMOUS EPITHELIAL CELLS,UR 0-5 /hpf (0-5)
[2023-04-12 01:15] LABS: ALBUMIN 3.5 g/dl (3.4-5.0); ANION GAP 12.3 (5-15); BILIRUBIN TOTAL 0.2 mg/dL (0.2-1.0); CALCIUM 8.9 mg/dL (8.5-10.1); CREATININE 0.8 mg/dL (0.55-1.02); EST CRCL DRUG DOSING (CG) 48.34 mL/min; POTASSIUM,K 3.3 mEq/L (3.5-5.1); PROTEIN TOTAL,TP 7.1 g/dl (6.4-8.2)
[2023-04-12] MEDS ORDERED: cefTRIAXone 1 GM in Sodium Chloride 0.9% 100 ML IV ONE (02:36)
[2023-04-12 03:28] VITALS: BP 124/77; PULSE 88
== END 2023-04-12 03:25 | disposition home or self-care (01) ==
LOC: JD.ED 23:36
DX: N39.0 Urinary tract infection, site not specified (principal); E03.9 Hypothyroidism, unspecified; Z79.899 Other long term (current) drug therapy; Z88.6 Allergy status to analgesic agent; Z88.8 Allergy status to other drugs, medicaments and biological substances; Z88.1 Allergy status to other antibiotic agents; Z91.040 Latex allergy status; Z91.048 Other nonmedicinal substance allergy status; Z91.041 Radiographic dye allergy status; Z88.5 Allergy status to narcotic agent
CPT/HCPCS: 36415; 74176; 80053; 81001; 83690; 85025; 96361; 96365; 96375; 99284; J0696; J1170; J2405; J3490; J7030

== ENCOUNTER 2023-05-06 16:55 | Emergency (ER) | payer MEDICARE, BC ==
[2023-05-06] MEDS ORDERED: hydrALAZINE 20 MG/ML SDV IVPUSH ONE (17:32)
[2023-05-06 17:44] LABS: BASOPHILS ABSOLUTE AUTO 0.03 K/mm3 (0.01-0.08); BASOPHILS PERCENT AUTO 0.6 % (0.1-1.2); EOSINOPHILS ABSOLUTE AUTO 0.09 K/mm3 (0.04-0.36); EOSINOPHILS PERCENT AUTO 1.7 (0.7-5.8); HEMATOCRIT 38.8 % (34.1-44.9); HEMOGLOBIN 12.4 gm/dl (11.2-15.7); IMMATURE GRAN ABSOLUTE AUTO 0.02 K/mm3 (0.00-0.10); IMMATURE GRAN PERCENT AUTO 0.4 % (<=1.0); LYMPHOCYTES ABSOLUTE AUTO 1.41 K/mm3 (1.18-3.74); LYMPHOCYTES PERCENT AUTO 26.4 % (19.3-51.7); MEAN CORPUSCULAR HEMOGLOBIN 28.4 pg (25.6-32.2); MEAN CORPUSCULAR VOLUME 88.8 fl (79.4-94.8); MONOCYTES ABSOLUTE AUTO 0.66 K/mm3 (0.24-0.36); MONOCYTES PERCENT AUTO 12.3 % (4.7-12.5); NEUTROPHILS ABSOLUTE AUTO 3.14 K/mm3 (1.56-6.13); NEUTROPHILS PERCENT AUTO 58.6 % (34.0-71.1); PLATELET COUNT,PLT 219 K/mm3 (182-369); RED BLOOD CELL COUNT 4.37 M/mm3 (3.98-5.22); WHITE BLOOD CELL COUNT,WBC 5.35 K/mm3 (3.98-10.04)
[2023-05-06 18:14] LABS: ALANINE AMINOTRANSFERASE,ALT 28 U/L (14-59); ALBUMIN 3.9 g/dl (3.4-5.0); ALKALINE PHOSPHATASE 62 U/L (46-116); ANION GAP 12.8 (5-15); ASPARTATE AMNIOTRANSFERASE,AST 22 U/L (15-37); BILIRUBIN TOTAL 0.2 mg/dL (0.2-1.0); BLOOD UREA NITROGEN,BUN 14 mg/dL (7-18); BUN/CREATININE RATIO 23.3 (14-18); CALCIUM 9.1 mg/dL (8.5-10.1); CARBON DIOXIDE,CO2 26 mEq/L (21-32); CHLORIDE,CL 104 mEq/L (98-107); CREATININE 0.6 mg/dL (0.55-1.02); EST CRCL DRUG DOSING (CG) 64.46 mL/min; ESTIMATED GFR 98 mL/min (>60); GLUCOSE RANDOM 104 mg/dL (70-99); POTASSIUM,K 3.8 mEq/L (3.5-5.1); PROTEIN TOTAL,TP 7.7 g/dl (6.4-8.2); SODIUM,NA 139 mEq/L (136-145)
[2023-05-06 18:22] LABS: INR 1.01; PROTHROMBIN TIME 10.8 SECONDS (9.7-12.0)
[2023-05-06 18:23] LABS: PTT,PARTIAL THROMBOPLSTIN TIME 28.4 SECONDS (21.7-31.4)
[2023-05-06 18:24] LABS: TROPONIN I HIGH SENSITIVITY < 4 pg/mL (<=51)
[2023-05-06 19:32] VITALS: BP 165/97; PULSE 74
== END 2023-05-06 19:44 | disposition home or self-care (01) ==
LOC: JD.ED 16:55
DX: R07.89 Other chest pain (principal); E03.9 Hypothyroidism, unspecified; E66.9 Obesity, unspecified; Z68.32 Body mass index [BMI] 32.0-32.9, adult; Z88.6 Allergy status to analgesic agent; Z91.048 Other nonmedicinal substance allergy status; Z88.1 Allergy status to other antibiotic agents; Z91.040 Latex allergy status; Z88.2 Allergy status to sulfonamides; Z91.041 Radiographic dye allergy status; Z88.8 Allergy status to other drugs, medicaments and biological substances; Z86.16 Personal history of COVID-19; Z90.710 Acquired absence of both cervix and uterus
CPT/HCPCS: 36415; 71045; 71045-26; 80053; 83735; 83880; 84484; 85025; 85610; 85730; 93005; 93010; 99284; 99285

== ENCOUNTER 2024-04-29 06:15 | Day surgery (SDC) | payer MEDICARE, BC ==
[~2024-04-29 06:15] MED LIST: Sodium Chloride 0.9% 10 ML Syringe FLUSH PRN; Sodium Chloride 0.9% 10 ML Syringe FLUSH SCH
[2024-04-29] MEDS ORDERED: fentaNYL 100 MCG/2 ML SDV ONE (06:46)
[2024-04-29] MEDS ORDERED: Propofol 200 MG/20 ML SDV ONE (06:46)
[2024-04-29] MEDS ORDERED: Midazolam 1 MG/ML 2 ML SDV ONE (06:47)
[2024-04-29] MEDS ORDERED: fentaNYL 100 MCG/2 ML SDV IVPUSH PRN (06:56)
[2024-04-29] MEDS ORDERED: Ondansetron 4 MG/2 ML SDV IVPUSH PRN (06:56)
[2024-04-29] MEDS ORDERED: HYDROmorphone 0.5 MG/0.5 ML Syringe IVPUSH PRN (06:56)
[2024-04-29] MEDS: Lactated Ringers 1,000 ML IV SCH (07:15)
[2024-04-29] MEDS: Bupivacaine 0.25% 10 ML SDV ONE (07:50)
[2024-04-29] MEDS: Lidocaine 1% 10 ML MDV ONE (07:50)
[2024-04-29 09:17] VITALS: BP 107/64; PULSE 70
== END 2024-04-29 09:15 | disposition home or self-care (01) ==
LOC: JD.SDS 06:15
PROVIDERS: ATTEND Orthopaedic Surgery
DX: M65.332 Trigger finger, left middle finger (principal); M65.342 Trigger finger, left ring finger; E78.01 Familial hypercholesterolemia; E66.9 Obesity, unspecified; E03.9 Hypothyroidism, unspecified; Z91.041 Radiographic dye allergy status; Z91.018 Allergy to other foods; Z79.899 Other long term (current) drug therapy; Z88.8 Allergy status to other drugs, medicaments and biological substances; Z68.32 Body mass index [BMI] 32.0-32.9, adult; Z79.890 Hormone replacement therapy
CPT/HCPCS: 26055; J0665; J2250; J2704; J3010; J7120; 01810; J3490

== ENCOUNTER 2024-11-24 10:58 | Day surgery (SDC) | payer MEDICARE, BC, OTHER ==
[2024-11-24] MEDS ORDERED: Gabapentin 300 MG Cap PO ONE (11:00)
[2024-11-24] MEDS: Lactated Ringers 1,000 ML IV SCH (11:20)
[2024-11-24] MEDS: Acetaminophen 325 MG Tab PO ONE (11:42)
[2024-11-24] MEDS ORDERED: Propofol 200 MG/20 ML SDV ONE ×2 (11:55→15:25)
[2024-11-24] MEDS ORDERED: fentaNYL 250 MCG/5 ML SDV ONE (11:55)
[2024-11-24] MEDS ORDERED: Dexamethasone 4 MG/ML 5 ML MDV ONE (11:58)
[2024-11-24] MEDS ORDERED: Lidocaine 1% 5 ML VIAL ONE (11:58)
[2024-11-24] MEDS ORDERED: dexmedeTOMIDine HCl 200 MCG/2 ML SDV ONE (11:58)
[2024-11-24] MEDS ORDERED: Rocuronium 50 MG/5 ML Vial ONE ×2 (11:58→13:37)
[2024-11-24] MEDS ORDERED: Ondansetron 4 MG/2 ML SDV ONE (11:58)
[2024-11-24] MEDS ORDERED: Clindamycin Phosphate in D5W 50 ML IV ONE (12:30)
[2024-11-24] MEDS ORDERED: Phenylephrine 1% 10 MG/ML SDV ONE (12:31)
[2024-11-24] MEDS: Bupivacaine 0.5% 30 ML SDV ONE (12:50)
[2024-11-24] MEDS: Lidocaine 1% with EPINEPHrine 1:100,000 20 ML MDV ONE (12:50)
[2024-11-24] MEDS: EPINEPHrine 1 MG/ML SDV ONE (12:50)
[2024-11-24] MEDS ORDERED: Lactated Ringers 1,000 ML IV ONE (14:15)
[2024-11-24] MEDS ORDERED: Sugammadex Sodium 200 MG/2 ML VIAL IV ONE (14:42)
[2024-11-24] MEDS ORDERED: HYDROmorphone 0.5 MG/0.5 ML Syringe IVPUSH PRN (14:45)
[2024-11-24] MEDS ORDERED: fentaNYL 100 MCG/2 ML SDV IVPUSH PRN (14:45)
[2024-11-24] MEDS: Acetaminophen/oxyCODONE 325-5 MG Tab PO PRN (16:36)
[2024-11-24 16:51] VITALS: BP 125/72; PULSE 65
== END 2024-11-24 17:40 | disposition home or self-care (01) ==
LOC: JD.SDS 10:58
PROVIDERS: ATTEND Surgery
DX: K43.9 Ventral hernia without obstruction or gangrene (principal); K66.0 Peritoneal adhesions (postprocedural) (postinfection); I50.9 Heart failure, unspecified; E03.9 Hypothyroidism, unspecified; E66.9 Obesity, unspecified; Z68.30 Body mass index [BMI] 30.0-30.9, adult; Z88.8 Allergy status to other drugs, medicaments and biological substances; Z91.040 Latex allergy status; Z91.09 Other allergy status, other than to drugs and biological substances; Z88.1 Allergy status to other antibiotic agents; Z79.899 Other long term (current) drug therapy; Z79.890 Hormone replacement therapy
CPT/HCPCS: 00790; 99100; A9270-GY; C1781; J0171; J0665; J0736; J1100; J2003; J2004; J2371; J2405; J2704; J3010; J3490; J7120